=== PATIENT | female | born 1940 | race Caucasian/White ===

== ENCOUNTER 2017-10-18 07:10 | Inpatient (IN) ==
--- NOTE | 2017-10-18 07:14 | Emergency Department Note ---
Disposition Clinical Impression: COPD exacerbation, Hypoxia CHF exacerbation Qualifiers: Heart failure type: unspecified Qualified Code(s): I50.9 - Heart failure, unspecified Pneumonia Qualifiers: Pneumonia type: due to unspecified organism Laterality: bilateral Lung location : unspecified part of lung Qualified Code(s): J18.9 - Pneumonia, unspecified organism Disposition: Admitted As Inpatient Condition: Fair Referrals: Mook Vyas MD [Primary Care Provider] - Forms: ED Satisfaction Letter Time of Disposition: 08:41 SOB HPI - General Chief Complaint: ED Shortness of Breath/Dyspnea Stated Complaint: LAKESHIA Time Seen by Provider: 10/18/17 07:14 Source: patient Mode of arrival: wheelchair Limitations: no limitations Nursing Notes Reviewed: Yes Vital Signs Reviewed: Yes - History of Present Illness Patient is a 76 showed female with past medical history of COPD, CHF. She presents today due to shortness of breath. She says that these symptoms started yesterday after working outside. Shortness of breath worsened into this morning. She has conversational dyspnea. She states that she usually only wears CPAP and oxygen 2 L at night. She does not require any oxygen throughout the day. She is currently on Symbicort inhaler daily. Not on any current antibiotics or prednisone. Denies any productive cough, chest pain, nausea, vomiting, fevers, diarrhea, abdominal pain. She has never required BiPAP in the past. She reports that she has never been to the hospital for COPD exacerbation. She does have Lasix to take at home as needed but states that she has not taken at over the past week, has not noticed any weight gain or increased swelling of lower extremities. - Related Data Home Medications Medication Instructions Recorded Confirmed Advair 100-50 Diskus 01/28/17 Albuterol Sulfate 01/28/17 Calcium 600 + Vit D Tablet 01/28/17 Child Multivitamins 01/28/17 Coreg 01/28/17 Fish Oil 01/28/17 Flonase 01/28/17 Lasix 01/28/17 Lomotil 2.5 mg/0.025 mg 01/28/17 Losartan Potassium 01/28/17 Spiriva 01/28/17 Spironolactone 01/28/17 01/28/17 Vitamin D3 01/28/17 Previous Rx's Medication Instructions Recorded cephALEXin [Keflex] 500 mg PO QID #28 capsule 05/02/17 Allergies Allergy/AdvReac Type Severity Reaction Status Date / Time balsalazide [From Colazal] AdvReac Fever Verified 05/02/17 14:24 Penicillins AdvReac Hives Verified 05/02/17 14:24 Sulfa (Sulfonamide AdvReac Fever Verified 05/02/17 14:24 Antibiotics) All systems ED: reviewed and negative except as stated. Constitutional: Denies: fever Cardiovascular: Denies: chest pain, palpitations Respiratory: Reports: dyspnea. Denies: cough, sputum production Gastrointestinal: Denies: abdominal pain, nausea, vomiting, diarrhea Integumentary: Denies: rash Neurological: Denies: headache, weakness, numbness, paresthesias Past Medical History - Past Medical History Attestation: Yes The following information was validated with the patient. Source: patient Medical history: Reports: non-contributory Surgical history: Reports: breast surgery, cancer surgery, cataract, orthopedic , other, other Psychiatric history: Reports: no psych history - Social History Smoking Status: Never smoker Smokeless Tobacco Status: No Alcohol use: Reports: none Drug use: Reports: none Physical Exam - General Limitations: no limitations General appearance: alert - Head Head exam: atraumatic, normocephalic, normal inspection - Eye Eye exam: Present: normal appearance, PERRL, EOMI - ENT ENT exam: normal exam, normal oropharynx, mucous membranes moist - Neck Neck exam: Present: normal inspection, full ROM, trachea midline - Chest Chest inspection: Present: normal inspection, symmetric chest wall rise - Respiratory Respiratory exam: Present: other (Mild rhonchi bilaterally lower lobes. No overt wheezes or crackles heard. Patient is using accessory muscles, moderate respiratory distress. Conversationally dyspneic) - Cardiovascular Cardiovascular exam: Present: normal rhythm, tachycardia, normal heart sounds - Abdominal Exam Abdominal exam: Present: soft, Non-Tender. Absent: tenderness, distention, guarding, rebound, rigidity - Extremities Exam Extremities exam: Present: normal inspection, full ROM. Absent: tenderness, pedal edema - Neurological Exam Neurological exam: Present: alert, oriented X3 - Psychiatric Psychiatric exam: Present: normal affect, normal mood - Skin Skin exam: Present: warm, dry, intact, normal color Course Course Narrative: Patient was hypoxic and tachycardic on presentation. She is around 89%, placed on 3 L nasal cannula oxygen and was satting 91-92%. She did have her rhonchi on lung exam but no overt wheezes or crackles. Currently concern for pneumonia versus COPD exacerbation versus CHF exacerbation. We will perform an EKG, chest x-ray, troponin, basic blood work, lactic acid and cultures. We will give the patient DuoNeb 3, Solu-Medrol, will try BiPAP due to work of breathing. 08:28 chest x-ray shows diffuse multifocal airspace opacities and pulmonary edema, likely pneumonia superimposed on diffuse pulmonary edema. EKG shows sinus tachycardia with no acute ST changes. Troponin was elevated 0.04, likely secondary to pneumonia, CHF/COPD exacerbation. Levaquin started. Blood cultures drawn. Lactic acid within normal limits. BNP elevated consistent with CHF. Patient was reassessed. She is improving on BiPAP. ABG showed respiratory acidosis with a CO2 of 52. We will keep patient on BiPAP to help with pulmonary edema. We will not start sepsis fluids at this time due to diffuse pulmonary edema. Limited to the hospitalist for further care. Chest X-Ray 10/18/17 07:20 IMPRESSION: 1. Diffuse multifocal airspace opacity throughout both lungs likely reflects a combination of asymmetric pulmonary edema and superimposed pneumonia. 2. Chronic postoperative changes within the right hemithorax status post partial right pneumonectomy, with chronic volume loss, pleural thickening, pleural calcifications noted. There is a chronic small right pleural effusion. D/ / Guerrero Elliott MD / Guerrero Elliott MD Interpreting Provider: Guerrero Elliott MD Vital Signs Temperature 97.5 F L 10/18/17 07:11 Pulse Rate 136 10/18/17 07:11 Respiratory Rate 28 10/18/17 07:11 Blood Pressure 143/87 10/18/17 07:11 O2 Sat by Pulse Oximetry 89 10/18/17 07:11 Temperature 97.5 F L 10/18/17 07:38 Pulse Rate 119 10/18/17 08:27 Respiratory Rate 30 10/18/17 08:27 Blood Pressure 105/59 10/18/17 08:27 O2 Sat by Pulse Oximetry 98 10/18/17 08:27 Oxygen Delivery Oxygen Delivery Bipap Shortness of Breath/Dyspnea - MDM Narrative Medical decision making narrative: Patient was hypoxic and tachycardic on presentation. She is around 89%, placed on 3 L nasal cannula oxygen and was satting 91-92%. She did have her rhonchi on lung exam but no overt wheezes or crackles. Currently concern for pneumonia versus COPD exacerbation versus CHF exacerbation. We will perform an EKG, chest x-ray, troponin, basic blood work, lactic acid and cultures. We will give the patient DuoNeb 3, Solu-Medrol, will try BiPAP due to work of breathing. 08:28 chest x-ray shows diffuse multifocal airspace opacities and pulmonary edema, likely pneumonia superimposed on diffuse pulmonary edema. EKG shows sinus tachycardia with no acute ST changes. Troponin was elevated 0.04, likely secondary to pneumonia, CHF/COPD exacerbation. Levaquin started. Blood cultures drawn. Lactic acid within normal limits. BNP elevated consistent with CHF. Patient was reassessed. She is improving on BiPAP. ABG showed respiratory acidosis with a CO2 of 52. We will keep patient on BiPAP to help with pulmonary edema. We will not start sepsis fluids at this time due to diffuse pulmonary edema. Limited to the hospitalist for further care. - Medical Records Medical records reviewed: Yes I reviewed the patient's medical records. - Lab Data Lab results reviewed: Yes I reviewed the patient's lab results. Result diagrams: 10/18/17 07:47 10/18/17 07:46 Lab Results 10/18/17 10/18/17 10/18/17 Range/Units 07:46 07:47 07:47 WBC 14.2 H (4.3-11.1) K/mcL RBC 3.82 (3.82-4.97) M/mcL Hgb 12.2 (11.5-15.4) g/dL Hct 36.6 (35.3-44.9) % MCV 95.8 (83.0-100.0) fL MCH 31.9 (28.0-33.3) pg MCHC 33.3 (31.6-35.5) g/dL RDW 13.8 (11.5-14.5) % Plt Count 254 (140-400) K/mcL MPV 9.6 (9.4-12.4) fL Immature Gran % 0.5 (0-4) % Seg Neutrophils % 72.2 % Lymphocytes % 16.5 % Monocytes % 8.9 % Eosinophils % 1.5 % Basophils % 0.4 % Neutrophils # 10.3 H (1.6-8.9) K/mcL Lymphocytes # 2.4 (0.6-4.6) K/mcL Monocytes # 1.3 (0.0-1.3) K/mcL Eosinophils # 0.2 (0.0-0.6) K/mcL Basophils # 0.1 (0.0-0.2) K/mcL VBG pH (7.32-7.42) pH Units VBG pCO2 (41-51) mmHg VBG pO2 (25-50) mmHg VBG HCO3 (21-27) mEq/L Sodium 140 (136-145) mEq/L Potassium 4.0 (3.5-5.1) mEq/L Chloride 107 (98-107) mEq/L Carbon Dioxide 25 (23-29) mEq/L BUN 18 (8-23) mg/dL Creatinine 1.07 (0.60-1.20) mg/dL Est GFR ( Amer) > 60 (> 60) Est GFR (Non-Af Amer) 50 L (> 60) BUN/Creatinine Ratio 17 (6-26) Glucose 180 H (70-105) mg/dL Calculated Osmolality 296 (280-300) Lactic Acid 1.3 (0.5-2.2) mmol/L Calcium 9.8 (8.6-10.3) mg/dL Troponin I 0.04 H* (< 0.04) ng/mL B-Natriuretic Peptide (Less than 100) pg/mL 10/18/17 10/18/17 Range/Units 07:47 07:58 WBC (4.3-11.1) K/mcL RBC (3.82-4.97) M/mcL Hgb (11.5-15.4) g/dL Hct (35.3-44.9) % MCV (83.0-100.0) fL MCH (28.0-33.3) pg MCHC (31.6-35.5) g/dL RDW (11.5-14.5) % Plt Count (140-400) K/mcL MPV (9.4-12.4) fL Immature Gran % (0-4) % Seg Neutrophils % % Lymphocytes % % Monocytes % % Eosinophils % % Basophils % % Neutrophils # (1.6-8.9) K/mcL Lymphocytes # (0.6-4.6) K/mcL Monocytes # (0.0-1.3) K/mcL Eosinophils # (0.0-0.6) K/mcL Basophils # (0.0-0.2) K/mcL VBG pH 7.31 L (7.32-7.42) pH Units VBG pCO2 54 H (41-51) mmHg VBG pO2 42 (25-50) mmHg VBG HCO3 27 (21-27) mEq/L Sodium (136-145) mEq/L Potassium (3.5-5.1) mEq/L Chloride (98-107) mEq/L Carbon Dioxide (23-29) mEq/L BUN (8-23) mg/dL Creatinine (0.60-1.20) mg/dL Est GFR ( Amer) (> 60) Est GFR (Non-Af Amer) (> 60) BUN/Creatinine Ratio (6-26) Glucose (70-105) mg/dL Calculated Osmolality (280-300) Lactic Acid (0.5-2.2) mmol/L Calcium (8.6-10.3) mg/dL Troponin I (< 0.04) ng/mL B-Natriuretic Peptide 758 H (Less than 100) pg/mL - Radiology Data Radiology results reviewed: Yes I reviewed the patient's radiology results. Chest X-Ray 10/18/17 07:20 IMPRESSION: 1. Diffuse multifocal airspace opacity throughout both lungs likely reflects a combination of asymmetric pulmonary edema and superimposed pneumonia. 2. Chronic postoperative changes within the right hemithorax status post partial right pneumonectomy, with chronic volume loss, pleural thickening, pleural calcifications noted. There is a chronic small right pleural effusion. D/ / Guerrero Elliott MD / Guerrero Elliott MD Interpreting Provider: Guerrero Elliott MD - EKG Data EKG attestation: Yes I reviewed and interpreted this EKG. EKG results narrative: 10/18/2017 at 07:47. Sinus tachycardia. Rate 123. IN 148. QRS 114. QTC 480. Left axis deviation. No acute ST elevation or depression. S.B.A.R. - S.B.A.R. Situation: Demographics, MOA Background: Presenting Complaint, Relevant PMH, Meds, & Allergies Assessment: Vital Signs, Course and respsone to treatment, Exam Concerns, Patient/Family Expectation, Pertinant Lab Results Recommendation: Barrier(s) to disposition, Recommendation based on pending studies, treatments, or consults [facility] Report Given to: Dr. Kenzie Newell Repor Time: 08:41
[2017-10-18] MEDS ORDERED: methylPREDNISolone 125 MG/2 ML VIAL IVP ONE (07:21)
[2017-10-18] MEDS ORDERED: Ipratropium/Albuterol Neb 3 ML IH ONE (07:21)
[2017-10-18 08:01] LABS: VBG HCO3 27 mEq/L (21-27); VBG PCO2 54 mmHg (41-51); VBG PH 7.31 pH Units (7.32-7.42); VBG PO2 42 mmHg (25-50)
[2017-10-18] MEDS ORDERED: Levofloxacin 750 MG/150 ML 750 MG/150 ML BAG IVPB ONE (08:11)
[2017-10-18 08:20] LABS: BUN/Creatinine Ratio 17 (6-26); Blood Urea Nitrogen 18 mg/dL (8-23); Calcium 9.8 mg/dL (8.6-10.3); Carbon Dioxide 25 mEq/L (23-29); Chloride 107 mEq/L (98-107); Glucose 180 mg/dL (70-105); Osmolality,Calculated 296 (280-300); Sodium 140 mEq/L (136-145); eGFR For African Americans > 60 (> 60); eGFR For Non-African Americans 50 (> 60)
[2017-10-18 08:22] LABS: Troponin I 0.04 ng/mL (< 0.04)
[2017-10-18 08:28] LABS: Basophils # 0.1 K/mcL (0.0-0.2); Basophils % 0.4 %; Eosinophils # 0.2 K/mcL (0.0-0.6); Eosinophils % 1.5 %; Hematocrit 36.6 % (35.3-44.9); Hemoglobin 12.2 g/dL (11.5-15.4); Immature Granulocytes % 0.5 % (0-4); Lymphocytes # 2.4 K/mcL (0.6-4.6); Lymphocytes % 16.5 %; Mean Corpuscular HGB Conc 33.3 g/dL (31.6-35.5); Mean Corpuscular Hemoglobin 31.9 pg (28.0-33.3); Mean Corpuscular Volume 95.8 fL (83.0-100.0); Mean Platelet Volume 9.6 fL (9.4-12.4); Monocytes # 1.3 K/mcL (0.0-1.3); Monocytes % 8.9 %; Neutrophils # 10.3 K/mcL (1.6-8.9); Platelet Count 254 K/mcL (140-400); Red Blood Count 3.82 M/mcL (3.82-4.97); Red Cell Distribution Width 13.8 % (11.5-14.5); Segmented Neutrophils % 72.2 %
--- NOTE | 2017-10-18 09:02 | Internal Med History&Physical ---
Date of Encounter: 10/18/17 Time of Encounter: 09:01 Internal Medicine - H&P: HPI Chief complaint: SOB Admitted From: Home Plans for Post Hospital Care: Home History of present illness: Ms. Jc is a 76 year old female who has history of CHF pulmonary fibrosis on 2 L at night with CPAP, history of breast cancer bilateral mastectomy in 1999, CK D stages 3, presenting emergency room for worsening shortness of breath for 2 days, she has chronic baseline shortness of breath, she started to have more shortness of breath yesterday, progressively gotten worse overnight and this morning she felt she could not breathe. Patient denies fever or chills denies productive cough no chest pain. She has a history of pulmonary fibrosis follow- up with [facility], she is currently not on any steroids or treatment. On 2 L nasal cannula at home at night. When she arrived the emergency room, she was very dyspneic, hypoxic sat 89% on RA, she was placed on BIPAP. She has bilateral diffuse wheezing, WBC 14.2 troponin 0.04 BNP 758. Chest x-ray shows bilateral pneumonia. Patient denies history of recent admission but she does have history of bronchiectasis and the pulmonary fibrosis. will admit for pneumoina and pulmonary fibrosis exacerbation, she is alleregic to Penicllin, but tolerated keflex. will add cefepime to cover pseudomonos. I discussed the CODE STATUS was patient and her . 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 If patient changes mind, she will let us know. Past Med Surg Social Fam HX - Past Medical History Medical history: non-contributory Psychiatric history: no psych history - Past Surgical History Surgical History: breast surgery, cancer surgery, cataract, orthopedic, other, other - Social History Smoking Status: Never smoker Smokeless Tobacco Status: No Alcohol use: none Drug use: none Internal Medicine - H&P: Meds Advair 100-50 Diskus 01/28/17 [History] Albuterol Sulfate 01/28/17 [History] Calcium 600 + Vit D Tablet 01/28/17 [History] Child Multivitamins 01/28/17 [History] Coreg 01/28/17 [History] Fish Oil 01/28/17 [History] Flonase 01/28/17 [History] Lasix 01/28/17 [History] Lomotil 2.5 mg/0.025 mg 01/28/17 [History] Losartan Potassium 01/28/17 [History] Spiriva 01/28/17 [History] Spironolactone 01/28/17 [History] Vitamin D3 01/28/17 [History] cephALEXin [Keflex] 500 mg PO QID #28 capsule 05/02/17 [Rx] 3 Allergy/AdvReac Type Severity Reaction Status Date / Time balsalazide [From Colazal] AdvReac Fever Verified 05/02/17 14:24 Penicillins AdvReac Hives Verified 05/02/17 14:24 Sulfa (Sulfonamide AdvReac Fever Verified 05/02/17 14:24 Antibiotics) All Systems PM: A 10-system review of systems was performed and is negative for pertinent findings except as documented above in the HPI. - Constitutional Vitals: Temp Pulse Resp BP Pulse Ox 97.5 F L 119 30 105/59 98 10/18/17 07:38 10/18/17 08:27 10/18/17 08:27 10/18/17 08:27 10/18/17 08:27 General appearance: Present: mild distress, A&O X 3, pleasant, answers questions appropriately Exam: CONSTITUTIONAL: Patient appears as an age appropriate female well developed, in mild acute distress on BIPAP. EYES Clear sclerae, bilateral pupils are equal, reactive to light and accommodation. Extraocular movements are intact RESPIRATORY: No accessory muscle use, bilateral clear to auscultation, b/l scant wheezing and crackles/rales. CARDIOVASCULAR: Regular heart rate, normal S1 and S2, no murmurs GASTROINTESTINAL: bowel sounds present, soft, no tenderness. No hepatosplenomegaly. No bilateral CVA tenderness MUSCULOSKELETAL: Joints in normal range of motion, no clubbing, no edema, no cyanosis. Bilateral peripheral pulses 2+ LYMPHATIC no lymphadenopathy in neck, groin and axilla bilaterally, no thyromegaly. NEUROLOGIC: CN II to XII are grossly intact, no focal neurological deficit. Deep tendon reflexes 2+ bilaterally. Normal light touch sensation to upper and lower extremity PSYCHIATRIC: Oriented x3, with good insight, mood is euthymic. No hallucinations or delusions. SKIN: Skin warm and dry, no rashes, no open wound. Internal Med - H&P Results - Labs CBC & Chem 7: 10/18/17 07:47 10/18/17 07:46 - Assessment and plan (1) Acute and chronic respiratory failure with hypoxia Current Visit: Yes Status: Acute Assessment and plan: Patient was on 2 L nasal cannula at night currently requires BiPAP FiO2 40%. Her respiratory rate is 30% per min From pneumonia and the pulmonary fibrosis exacerbation. We will continue BiPAP I discussed the CODE STATUS with patient including intubation. The patient does not want intubation and chest compression at this point. I informed the patient that she can change her mind at any time and let us know. will consult pulmonary (2) Pneumonia Current Visit: Yes Status: Acute Assessment and plan: Patient lives at home no recent admissions. But she has history of bronchiectasis and the pulmonary fibrosis I will cover pseudomonas, add cefepime to levaquin check leginella, strep antigen Qualifiers: Pneumonia type: due to other aerobic Gram-negative bacteria Laterality: bilateral Lung location: unspecified part of lung Qualified Code(s): J15.6 - Pneumonia due to other Gram-negative bacteria (3) Pulmonary fibrosis Current Visit: Yes Status: Acute Assessment and plan: Patient has history of pulmonary fibrosis, follow-up at [facility]. Currently not on treatment Patient has bilateral wheezing, possible pulmonary fibrosis exacerbation. We will add the steroids scheduled her nebulizer (4) Systolic CHF, acute on chronic Current Visit: Yes Status: Acute Assessment and plan: Patient had a history of systolic CHF from chemotherapy back to 1999, patient reported that her EF was 40%, she has been on Lasix, but she stopped a few weeks ago. We will give 1 dose of IV Lasix today, BNP was 750 follow up with a.m. (5) Elevated troponin Current Visit: Yes Status: Acute Assessment and plan: Elevated troponin denies chest pain, EKG showed a sinus tachycardia without ST elevation or depression. Will follow-up troponin 3 Likely demand ischemia from pneumonia and respiratory failure (6) Hx of breast cancer Current Visit: Yes Status: Acute Assessment and plan: In 1999, patient had a bilateral mastectomy s/p chemotherapy (7) Hx of bronchiectasis Current Visit: Yes Status: Chronic Assessment and plan: Patient had a history of bronchiectasis when he she was teenager, stated post right lower lobectomy - Time Spent With Patient Total time spent is greater than 50% in coordination of care (as documented) at patient's floor/unit and/or counseling patient: Greater than 35 minutes
--- NOTE | 2017-10-18 09:23 | Emergency Department Note ---
Disposition Clinical Impression: COPD exacerbation, Hypoxia CHF exacerbation Qualifiers: Heart failure type: unspecified Qualified Code(s): I50.9 - Heart failure, unspecified Pneumonia Qualifiers: Pneumonia type: due to unspecified organism Laterality: bilateral Lung location : unspecified part of lung Qualified Code(s): J18.9 - Pneumonia, unspecified organism Disposition: Admitted As Inpatient Condition: Fair Time of Disposition: 08:27 SOB HPI - General Chief Complaint: ED Shortness of Breath/Dyspnea Stated Complaint: LAKESHIA Time Seen by Provider: 10/18/17 07:14 Source: patient Mode of arrival: wheelchair Limitations: no limitations Nursing Notes Reviewed: Yes Vital Signs Reviewed: Yes - Related Data Home Medications Medication Instructions Recorded Confirmed Albuterol Sulfate [Proair Hfa] 2 puff IH Q4H PRN 10/18/17 10/18/17 Calcium Carb, Citrate/Vit D3 1 tab PO DAILY 10/18/17 10/18/17 [Calcium + D3 ER Tablet] Carvedilol [Coreg] 3.125 mg PO BID 10/18/17 10/18/17 Cholecalciferol (Vitamin D3) 4,000 unit PO DAILY 10/18/17 10/18/17 [Vitamin D3] Fish Oil/Dha/Epa [Fish Oil 1,200 1 cap PO BID 10/18/17 10/18/17 mg Fish Oil] Fluticasone/Salmeterol [Advair 1 puff IH BID 10/18/17 10/18/17 500-50 Diskus] Furosemide [Lasix] 20 mg PO DAILY PRN 10/18/17 10/18/17 Losartan Potassium [Cozaar] 50 mg PO DAILY 10/18/17 10/18/17 Losartan [Cozaar] 25 mg PO DAILY 10/18/17 10/18/17 Magnesium Oxide [Mag-Ox] 400 mg PO DAILY 10/18/17 10/18/17 Multivitamin [One Daily 1 tab PO DAILY 10/18/17 10/18/17 Multivitamin] Spironolactone [Aldactone] 25 mg PO Q48H 10/18/17 10/18/17 Tiotropium [Spiriva] 18 mcg IH DAILY 10/18/17 10/18/17 Vitamin E Acid Succinate [Vitamin 200 unit PO DAILY 10/18/17 10/18/17 E] Allergies Allergy/AdvReac Type Severity Reaction Status Date / Time balsalazide [From Colazal] AdvReac Fever Verified 05/02/17 14:24 Penicillins AdvReac Hives Verified 05/02/17 14:24 Sulfa (Sulfonamide AdvReac Fever Verified 05/02/17 14:24 Antibiotics) Constitutional: Denies: fever Cardiovascular: Denies: chest pain, palpitations Respiratory: Reports: dyspnea. Denies: cough, sputum production Gastrointestinal: Denies: abdominal pain, nausea, vomiting, diarrhea Integumentary: Denies: rash Neurological: Denies: headache, weakness, numbness, paresthesias Past Medical History - Past Medical History Medical history: Reports: non-contributory Surgical history: Reports: breast surgery, cancer surgery, cataract, orthopedic , other, other Psychiatric history: Reports: no psych history - Social History Smoking Status: Never smoker Smokeless Tobacco Status: No Alcohol use: Reports: none Drug use: Reports: none Physical Exam - General Limitations: no limitations General appearance: alert Course Vital Signs Temperature 97.5 F L 10/18/17 07:11 Pulse Rate 136 10/18/17 07:11 Respiratory Rate 28 10/18/17 07:11 Blood Pressure 143/87 10/18/17 07:11 O2 Sat by Pulse Oximetry 89 10/18/17 07:11 Temperature 97.5 F L 10/18/17 07:38 Pulse Rate 119 10/18/17 08:27 Respiratory Rate 30 10/18/17 08:27 Blood Pressure 105/59 10/18/17 08:27 O2 Sat by Pulse Oximetry 98 10/18/17 08:27 Oxygen Delivery Oxygen Delivery Bipap Shortness of Breath/Dyspnea - Lab Data Result diagrams: 10/18/17 07:47 10/18/17 07:46 Lab Results 10/18/17 10/18/17 10/18/17 Range/Units 07:46 07:47 07:47 WBC 14.2 H (4.3-11.1) K/mcL RBC 3.82 (3.82-4.97) M/mcL Hgb 12.2 (11.5-15.4) g/dL Hct 36.6 (35.3-44.9) % MCV 95.8 (83.0-100.0) fL MCH 31.9 (28.0-33.3) pg MCHC 33.3 (31.6-35.5) g/dL RDW 13.8 (11.5-14.5) % Plt Count 254 (140-400) K/mcL MPV 9.6 (9.4-12.4) fL Immature Gran % 0.5 (0-4) % Seg Neutrophils % 72.2 % Lymphocytes % 16.5 % Monocytes % 8.9 % Eosinophils % 1.5 % Basophils % 0.4 % Neutrophils # 10.3 H (1.6-8.9) K/mcL Lymphocytes # 2.4 (0.6-4.6) K/mcL Monocytes # 1.3 (0.0-1.3) K/mcL Eosinophils # 0.2 (0.0-0.6) K/mcL Basophils # 0.1 (0.0-0.2) K/mcL VBG pH (7.32-7.42) pH Units VBG pCO2 (41-51) mmHg VBG pO2 (25-50) mmHg VBG HCO3 (21-27) mEq/L Sodium 140 (136-145) mEq/L Potassium 4.0 (3.5-5.1) mEq/L Chloride 107 (98-107) mEq/L Carbon Dioxide 25 (23-29) mEq/L BUN 18 (8-23) mg/dL Creatinine 1.07 (0.60-1.20) mg/dL Est GFR ( Amer) > 60 (> 60) Est GFR (Non-Af Amer) 50 L (> 60) BUN/Creatinine Ratio 17 (6-26) Glucose 180 H (70-105) mg/dL Calculated Osmolality 296 (280-300) Lactic Acid 1.3 (0.5-2.2) mmol/L Calcium 9.8 (8.6-10.3) mg/dL Troponin I 0.04 H* (< 0.04) ng/mL B-Natriuretic Peptide (Less than 100) pg/mL 10/18/17 10/18/17 Range/Units 07:47 07:58 WBC (4.3-11.1) K/mcL RBC (3.82-4.97) M/mcL Hgb (11.5-15.4) g/dL Hct (35.3-44.9) % MCV (83.0-100.0) fL MCH (28.0-33.3) pg MCHC (31.6-35.5) g/dL RDW (11.5-14.5) % Plt Count (140-400) K/mcL MPV (9.4-12.4) fL Immature Gran % (0-4) % Seg Neutrophils % % Lymphocytes % % Monocytes % % Eosinophils % % Basophils % % Neutrophils # (1.6-8.9) K/mcL Lymphocytes # (0.6-4.6) K/mcL Monocytes # (0.0-1.3) K/mcL Eosinophils # (0.0-0.6) K/mcL Basophils # (0.0-0.2) K/mcL VBG pH 7.31 L (7.32-7.42) pH Units VBG pCO2 54 H (41-51) mmHg VBG pO2 42 (25-50) mmHg VBG HCO3 27 (21-27) mEq/L Sodium (136-145) mEq/L Potassium (3.5-5.1) mEq/L Chloride (98-107) mEq/L Carbon Dioxide (23-29) mEq/L BUN (8-23) mg/dL Creatinine (0.60-1.20) mg/dL Est GFR ( Amer) (> 60) Est GFR (Non-Af Amer) (> 60) BUN/Creatinine Ratio (6-26) Glucose (70-105) mg/dL Calculated Osmolality (280-300) Lactic Acid (0.5-2.2) mmol/L Calcium (8.6-10.3) mg/dL Troponin I (< 0.04) ng/mL B-Natriuretic Peptide 758 H (Less than 100) pg/mL Attestation Statement - Attestation Attestation: I, Zay Arreola, examined this patient and my medical decision-making was reviewed with the [employer] STUDDER/PA/Advanced Practice Nurse/Resident Physician. I agree with the documented findings, disposition and treatment plan as described except to the extent set forth below. 76-year-old female presents emergency Department with increased shortness of breath. Patient satting 91% on 3-4 L of nasal cannula which she states is abnormal for her. On initial evaluation she had increased work of breathing using accessory muscles. Patient states symptoms started and progressively worsened over the past 24-48 hours. Patient has a history of COPD and takes inhalers daily. She also has a history of congestive heart failure, denies a change in her diet. She takes Lasix when necessary however she has not taken any recently. Patient denies recent fever. Chest x-ray shows significant pulmonary edema with possible multifocal pneumonia. Patient started on antibiotics in the emergency department. She has mildly tachycardic and thus we did not give Lasix. We also did not give 20 mL per KG bolus of fluids secondary to her pulmonary edema. Patient work of breathing improved significantly with BiPAP. Patient will be admitted to the hospital for further care and evaluation of pulmonary edema versus multifocal pneumonia.
[2017-10-18] MEDS ORDERED: Furosemide 40 MG/4 ML VIAL IVP ONE (09:39)
[2017-10-18] MEDS ORDERED: Naloxone 0.4 MG/ML INJ IVP PRN (09:42)
[2017-10-18] MEDS ORDERED: Albuterol 2.5 MG/3 ML NEBULIZER IH PRN (09:47)
--- NOTE | 2017-10-18 10:01 | Pulmonology Consult Note ---
Date of Encounter: 10/18/17 Time of Encounter: 09:40 Assessment and Plan (1) COPD exacerbation Current Visit: Yes Status: Acute Patient has h/o mixed obstructive and restrictive ventilatory impairment the PFT was done [facility] . with long standing history significant for recurrent bronchitis and asthma suspect she will have COPD changes . To continue bronchodilators and steroids . This presentation more likely to have acute on chronic systolic heart failure component.. (2) Acute and chronic respiratory failure with hypoxia Current Visit: Yes Status: Acute Patient doesnt use O2 on exertion most likely she needs only uses nocturnal O2 supplementation . To Keep SPO2 around 90% (3) Systolic CHF, acute on chronic Current Visit: Yes Status: Acute Patient presenting with subacute shortness of breadth with background of EF of 40% secondary to non -ischemic cardiomyopathy with increased BNP and CXR imaging shows bilateral alveolar process will continue diuresis as tolerated . (4) Pneumonia Current Visit: Yes Status: Acute Patient has bilateral alveolar process which can be pneumonia vs pulmonary edema agree with broad spectrum antibiotics coverage now . Qualifiers: Pneumonia type: due to other aerobic Gram-negative bacteria Laterality: bilateral Lung location: unspecified part of lung Qualified Code(s): J15.6 - Pneumonia due to other Gram-negative bacteria (5) Pulmonary fibrosis Current Visit: Yes Status: Acute Patient has long standing pulmonary fibrosis currently followed by [facility] pul[facility]ology highly doubt this is Pulmonary fibrosis exacerbation will get CT chest if patient is not improving . History of Present Illness Consult date: 10/18/17 Requesting physician: Karen Espino Chief complaint: Shortness of Breadth History of present illness: 76 year old female with past medical history significant for Systolic heart failure according to patient the Last EF was 40% 2 years before it all started after chemotherapy for breast cancer with adriamycin initially her EF was 15% which improved to 40% , Patient follows up with [facility] pulmnology managed for pulmonary fibrosis , SOBEIDA on CPAP with 2 LPM of O2 at night but doesnt use O2 during exertion during the day. According to patient the PFT showed mixed obstructive and restrictive ventilatory impairment comes with 2 days of shortness of breadth had some cough but not much sputum production CXR showed bilateral alveolar opacities concerning multifocal pneumonia vs Pulmonary edema. Pulmonary was consulted for management of acute hypoxic respiratory failure. Past Med Surg Social Fam HX - Past Medical History Medical history: non-contributory Psychiatric history: no psych history - Past Surgical History Surgical History: breast surgery, cancer surgery, cataract, orthopedic, other, other - Social History Smoking Status: Never smoker Smokeless Tobacco Status: No Alcohol use: none Drug use: none Medications and Allergies Albuterol Sulfate [Proair Hfa] 2 puff IH Q4H PRN 10/18/17 [History] Calcium Carb, Citrate/Vit D3 [Calcium + D3 ER Tablet] 1 tab PO DAILY 10/18/17 [ History] Carvedilol [Coreg] 3.125 mg PO BID 10/18/17 [History] Cholecalciferol (Vitamin D3) [Vitamin D3] 4,000 unit PO DAILY 10/18/17 [History] Fish Oil/Dha/Epa [Fish Oil 1,200 mg Fish Oil] 1 cap PO BID 10/18/17 [History] Fluticasone/Salmeterol [Advair 500-50 Diskus] 1 puff IH BID 10/18/17 [History] Furosemide [Lasix] 20 mg PO DAILY PRN 10/18/17 [History] Losartan Potassium [Cozaar] 50 mg PO DAILY 10/18/17 [History] Losartan [Cozaar] 25 mg PO DAILY 10/18/17 [History] Magnesium Oxide [Mag-Ox] 400 mg PO DAILY 10/18/17 [History] Multivitamin [One Daily Multivitamin] 1 tab PO DAILY 10/18/17 [History] Spironolactone [Aldactone] 25 mg PO Q48H 10/18/17 [History] Tiotropium [Spiriva] 18 mcg IH DAILY 10/18/17 [History] Vitamin E Acid Succinate [Vitamin E] 200 unit PO DAILY 10/18/17 [History] 3 Allergy/AdvReac Type Severity Reaction Status Date / Time balsalazide [From Colazal] AdvReac Fever Verified 05/02/17 14:24 Penicillins AdvReac Hives Verified 05/02/17 14:24 Sulfa (Sulfonamide AdvReac Fever Verified 05/02/17 14:24 Antibiotics) All Systems: The remainder of the systems were reviewed and are negative Physical Examination Vital Signs: Vital Signs, Last 4 Hours Temp Pulse Resp BP Pulse Ox 10/18/17 09:21 98.5 F 120 20 138/65 94 Auscultation: right: diminished breath sounds, bilateral: wheezes (scattered wheezes ) Results - Laboratory Findings CBC and BMP: 10/18/17 07:47 10/18/17 07:46 Abnormal lab findings: Abnormal lab results WBC 14.2 K/mcL (4.3-11.1) H 10/18/17 07:47 Neutrophils # 10.3 K/mcL (1.6-8.9) H 10/18/17 07:47 VBG pH 7.31 pH Units (7.32-7.42) L 10/18/17 07:58 VBG pCO2 54 mmHg (41-51) H 10/18/17 07:58 Est GFR (Non-Af Amer) 50 (> 60) L 10/18/17 07:46 Glucose 180 mg/dL (70-105) H 10/18/17 07:46 Troponin I 0.04 ng/mL (< 0.04) H* 10/18/17 07:46 B-Natriuretic Peptide 758 pg/mL (Less than 100) H 10/18/17 07:47 - Clinical Findings Intake & Output: Intake & Output 10/17/17 10/18/17 10/18/17 23:59 07:59 15:59 Weight 76.5 kg Consult Discharge Plan - Plan Referrals: Mook Vyas MD [Primary Care Provider] -
[2017-10-18] MEDS ORDERED: Budesonide/Formoterol 160/4.5 MDI IH SCH (10:30)
[2017-10-18] MEDS: Ipratropium/Albuterol Neb 3 ML IH SCH ×4 (11:36→23:56)
[2017-10-18] MEDS ORDERED: MethylPREDNISolone 40 MG/ML VIAL IVP SCH (12:00)
[2017-10-18] MEDS: Cefepime HCl 2,000 MG in 0.9 % Sodium Chloride Mini Bag 100 ML IVPB SCH ×2 (13:23→17:03)
[2017-10-18] MEDS: MethylPREDNISolone 40 MG/ML VIAL IVP SCH ×2 (16:16→22:35)
[2017-10-18] MEDS ORDERED: 0.9 % Sodium Chloride 1,000 ML IVC SCH (22:15)
[2017-10-18] MEDS: Budesonide/Formoterol 160/4.5 MDI IH SCH (23:56)
[2017-10-19 02:02] LABS: Hematocrit 32.2 % (35.3-44.9); Hemoglobin 10.7 g/dL (11.5-15.4); Mean Corpuscular HGB Conc 33.2 g/dL (31.6-35.5); Mean Corpuscular Hemoglobin 30.8 pg (28.0-33.3); Mean Corpuscular Volume 92.8 fL (83.0-100.0); Mean Platelet Volume 9.5 fL (9.4-12.4); Platelet Count 204 K/mcL (140-400); Red Blood Count 3.47 M/mcL (3.82-4.97); Red Cell Distribution Width 13.7 % (11.5-14.5)
[2017-10-19 02:21] LABS: Calcium 9.3 mg/dL (8.6-10.3); Magnesium 1.2 mg/dL (1.6-2.6); Potassium 3.6 mEq/L (3.5-5.1)
[2017-10-19] MEDS: Ipratropium/Albuterol Neb 3 ML IH SCH ×6 (03:52→23:38)
[2017-10-19] MEDS: Cefepime HCl 2,000 MG in 0.9 % Sodium Chloride Mini Bag 100 ML IVPB SCH ×2 (05:26→17:24)
--- NOTE | 2017-10-19 07:27 | Pulmonology Progress Note ---
Date of Encounter: 10/19/17 Time of Encounter: 07:20 Assessment and Plan (1) COPD exacerbation Current Visit: Yes Status: Acute Patient has h/o mixed obstructive and restrictive ventilatory pattern , with history recurrent bronchitis in the past will treat as COPD flare up complicated Systolic heart failure . To continue bronchodilaors . (2) Acute and chronic respiratory failure with hypoxia Current Visit: Yes Status: Acute Patient Oxygenation is stable secondary to chronic fibrosis following right lower lobectomy now complicated with systolic heart failure and COPD (3) Systolic CHF, acute on chronic Current Visit: Yes Status: Acute ECHO showed EF of 35% with global LV systolic dysfunction with mild pulmonary HTN . To stop IV fluids to do gentle diuresis as tolerated . Patient to follow up with [facility] for heart failure patient is already established there (4) Pneumonia Current Visit: Yes Status: Acute To continue the current regimen of antibiotics will soon descalate . Qualifiers: Pneumonia type: due to other aerobic Gram-negative bacteria Laterality: bilateral Lung location: unspecified part of lung Qualified Code(s): J15.6 - Pneumonia due to other Gram-negative bacteria (5) Pulmonary fibrosis Current Visit: Yes Status: Acute Patient has chronic fibrosis will evaluate further with CT Chest W/O contrast Subjective Principal diagnosis: CHF exacerbation and possible pneumonia Interval history: Patient is doing well getting better still not back to baseline ,denies any chest pain or tightness , still has on and off shortness of breadth , denies any wheezing has some occasional cough no sputum production . Objective PUL Vital signs: Last Vital Signs Temp 97.8 F 10/19/17 03:46 Pulse 112 10/19/17 03:46 Resp 15 10/19/17 03:52 BP 93/56 10/19/17 03:46 Pulse Ox 95 10/19/17 06:04 Auscultation: bilateral: other (bilateral basilar crackles ) Results - Laboratory Findings CBC and BMP: 10/19/17 01:49 10/19/17 01:49 Abnormal lab findings: Abnormal lab results WBC 13.2 K/mcL (4.3-11.1) H 10/19/17 01:49 RBC 3.47 M/mcL (3.82-4.97) L 10/19/17 01:49 Hgb 10.7 g/dL (11.5-15.4) L D 10/19/17 01:49 Hct 32.2 % (35.3-44.9) L 10/19/17 01:49 Neutrophils # 10.3 K/mcL (1.6-8.9) H 10/18/17 07:47 VBG pH 7.31 pH Units (7.32-7.42) L 10/18/17 07:58 VBG pCO2 54 mmHg (41-51) H 10/18/17 07:58 Carbon Dioxide 22 mEq/L (23-29) L 10/19/17 01:49 BUN 30 mg/dL (8-23) H 10/19/17 01:49 Creatinine 1.29 mg/dL (0.60-1.20) H 10/19/17 01:49 Est GFR ( Amer) 49 (> 60) L 10/19/17 01:49 Est GFR (Non-Af Amer) 40 (> 60) L 10/19/17 01:49 Glucose 252 mg/dL (70-105) H 10/19/17 01:49 Calculated Osmolality 301 (280-300) H 10/19/17 01:49 Lactic Acid 3.2 mmol/L (0.5-2.2) H 10/18/17 22:29 Magnesium 1.2 mg/dL (1.6-2.6) L 10/19/17 01:49 Troponin I 0.04 ng/mL (< 0.04) H* 10/19/17 01:49 B-Natriuretic Peptide 878 pg/mL (Less than 100) H 10/19/17 01:49 - Clinical Findings Intake & Output: Intake & Output 10/18/17 10/18/17 10/19/17 15:59 23:59 07:59 Intake Total 100 / 100 1040 / 1040 Balance 100 / 100 1040 / 1040 Weight 76.5 kg 74.843 kg Consult Discharge Plan - Plan Referrals: Mook Vyas MD [Primary Care Provider] -
[2017-10-19] MEDS: Cholecalciferol (D-3) 1,000 UNIT TABLET PO SCH (08:21)
[2017-10-19] MEDS: MethylPREDNISolone 40 MG/ML VIAL IVP SCH ×3 (08:21→23:24)
[2017-10-19] MEDS: Magnesium Oxide 400 MG TABLET PO SCH (08:21)
[2017-10-19] MEDS: Levofloxacin 750 MG/150 ML 750 MG/150 ML BAG IVPB SCH (08:22)
[2017-10-19] MEDS ORDERED: Tiotropium 18 MCG inhalation IH SCH (09:00)
[2017-10-19] MEDS: Budesonide/Formoterol 160/4.5 MDI IH SCH ×2 (11:13→20:12)
--- NOTE | 2017-10-19 14:03 | Internal Med Progress Note ---
Date of Encounter: 10/19/17 Time of Encounter: 14:01 - Assessment and plan (1) Acute and chronic respiratory failure with hypoxia Current Visit: Yes Status: Acute Assessment and plan: Possibly from Pulm fibrosis flare and pneumonia Cont O2 supplement Continue antbiotics-Cefepime and levaquin, pulm is following FOr CT Chest today Continue steroids and bronchodilators (2) Elevated troponin Current Visit: Yes Status: Acute Assessment and plan: Elevated troponin denies chest pain, EKG showed a sinus tachycardia without ST elevation or depression. Will follow-up troponin 3 Likely demand ischemia from pneumonia and respiratory failure ECHO with EF 35%,known low EF, but new multiple WMA Will consult cardiology Euvolemic at this time, slight bump in Cr from one dose of lasix, continue to monitor (3) Hx of breast cancer Current Visit: Yes Status: Chronic Assessment and plan: In 1999, patient had a bilateral mastectomy s/p chemotherapy (4) Pneumonia Current Visit: Yes Status: Acute Assessment and plan: as in resp failure Follow CT scan report Qualifiers: Pneumonia type: due to other aerobic Gram-negative bacteria Laterality: bilateral Lung location: unspecified part of lung Qualified Code(s): J15.6 - Pneumonia due to other Gram-negative bacteria (5) Pulmonary fibrosis Current Visit: Yes Status: Acute Assessment and plan: as in resp failure (6) Systolic CHF, acute on chronic Current Visit: Yes Status: Acute Assessment and plan: Elevated BNP ECHO with EF 35%,WMA, patient with SOB Elevated cr from 1.0 to 1.29 this a.m, received one dose of laisx IV Will hold lasix for now Cardio eval (7) Hx of bronchiectasis Current Visit: Yes Status: Chronic Assessment and plan: Patient had a history of bronchiectasis when she was teenager, stated post right lower lobectomy - Time Spent With Patient Total time spent is greater than 50% in coordination of care (as documented) at patient's floor/unit and/or counseling patient: - Subjective Interval history: Seen and examined at the bedside with spouse No new complains Slight increase in Cr overnight, received one dose of lasix on admission - Constitutional Vitals: Temp Pulse Resp BP Pulse Ox 98.3 F 106 17 99/57 97 10/19/17 11:08 10/19/17 11:08 10/19/17 11:08 10/19/17 11:08 10/19/17 11:08 General appearance: Present: A&O X 3, pleasant, no acute distress, answers questions appropriately - Head Head exam: Present: atraumatic, normocephalic - Eye Eye exam: Present: PERRL, conjuntiva pink, sclera anicteric Pupils: Present: PERRL - Neck Neck exam general surgery: Present: supple, trachea midline. Absent: lymphadenopathy - Respiratory Additional comments: expiratory rales,no wheezing - Cardiovascular Cardiovascular exam: Present: RRR, +S1, +S2. Absent: diastolic murmur, gallop, rubs, systolic murmur - GI/Abdominal GI/Abdominal exam: Present: normal bowel sounds, soft, no peritoneal signs. Absent: distended, tenderness - Extremities Exam Extremities exam: Present: warm, radial pulses palpable and symmetrical. Absent : calf tenderness, cyanotic, pedal edema - Neurological Exam Neurological exam: Present: alert, CN II-XII intact, oriented X3, no focal deficits. Absent: pronater drift, facial droop, speech deficit - Skin Skin exam: Present: dry, intact Internal Medicine: Result - Labs CBC & Chem 7: 10/19/17 01:49 10/19/17 01:49 Labs: Short CBC 10/19/17 Range/Units 01:49 WBC 13.2 H (4.3-11.1) K/mcL Hgb 10.7 L D (11.5-15.4) g/dL Hct 32.2 L (35.3-44.9) % Plt Count 204 (140-400) K/mcL BMP 10/19/17 01:49 Sodium 138 Potassium 3.6 Chloride 106 Carbon Dioxide 22 L BUN 30 H Creatinine 1.29 H Glucose 252 H Calcium 9.3 Cardiac Enzymes 10/18/17 10/18/17 10/19/17 Range/Units 13:38 19:13 01:49 Troponin I 0.05 H* 0.04 H* 0.04 H* (< 0.04) ng/mL - Impressions Impressions Echocardiogram 10/19/17 09:58 Impressions: LVEF 35%. Normal LV chamber size and wall thickness. Global left ventricular systolic dysfunction. Indeterminate diastolic function. Normal right ventricular structure and function. Mild tricuspid regurgitation. Mild pulmonary hypertension. Estimated RVSP is 44 mmHg. Left Ventricular Wall Motion: Rest Echo Findings The apex, apical inferior, mid inferior, basal inferior, apical anterior, mid anterior, basal anterior, apical septal, mid inferior septal, basal inferior septal, apical lateral, mid anterior lateral, basal anterior lateral, mid anterior septal, mid inferior lateral, basal anterior septal and basal inferior lateral carrion were hypokinetic. Findings: Study Quality * Technically adequate exam. ECG Findings * Sinus tachycardia. Left Ventricle * LVEF 35%. * Normal LV chamber size and wall thickness. * Global left ventricular systolic dysfunction. * Indeterminate diastolic function. Right Ventricle * Normal right ventricular structure and function. Left Atrium * Severely dilated left atrium. Right Atrium * Normal right atrial size. Aortic Valve * Aortic valve not well visualized. * No aortic regurgitation. * No aortic stenosis. Mitral Valve * Normal mitral valve structure and function. * No mitral stenosis. * Trace mitral regurgitation. This was not well evaluated and could be underestiamted. Tricuspid Valve * Normal tricuspid valve structure. * Mild tricuspid regurgitation. * Mild pulmonary hypertension. * Estimated RVSP is 44 mmHg. * Estimated RA pressure is 5 mmHg. Pulmonic Valve * Pulmonic valve not well visualized. Aorta * Normally sized aortic root. Pericardium * The pericardium appears normal. IVC * Normal IVC dimensions and inspiratory collapse. Pulmonary Artery * Normal visualized portions of the main pulmonary artery. Consult Discharge Plan - Plan Referrals: Mook Vyas MD [Primary Care Provider] -
[2017-10-19] MEDS: *HR* Heparin 5,000 UNIT/ML VIAL SQ SCH (17:26)
[2017-10-20] MEDS ORDERED: 0.9 % Sodium Chloride 250 ML IVC ONE (02:36)
[2017-10-20] MEDS ORDERED: *HR* LORazepam 2 MG/ML VIAL IVP ONE (02:37)
[2017-10-20 03:01] LABS: Basophils % 0.1 %
[2017-10-20] MEDS ORDERED: 0.9 % Sodium Chloride 500 ML ONE (03:02)
[2017-10-20 03:03] LABS: Hematocrit 36.8 % (35.3-44.9); Hemoglobin 12.1 g/dL (11.5-15.4); Immature Granulocytes % 0.8 % (0-4); Lymphocytes % 3.9 %; Mean Corpuscular HGB Conc 32.9 g/dL (31.6-35.5); Mean Corpuscular Hemoglobin 30.6 pg (28.0-33.3); Mean Corpuscular Volume 93.2 fL (83.0-100.0); Mean Platelet Volume 9.3 fL (9.4-12.4); Monocytes % 3.9 %; Neutrophils # 23.3 K/mcL (1.6-8.9); Platelet Count 282 K/mcL (140-400); Red Blood Count 3.95 M/mcL (3.82-4.97); Segmented Neutrophils % 91.3 %
[2017-10-20 03:23] LABS: Platelet Estimate Normal (Normal)
[2017-10-20 03:31] LABS: Calcium 9.4 mg/dL (8.6-10.3); Potassium 4.5 mEq/L (3.5-5.1)
[2017-10-20] MEDS: Ipratropium/Albuterol Neb 3 ML IH SCH ×6 (04:01→23:46)
[2017-10-20] MEDS: Cefepime HCl 2,000 MG in 0.9 % Sodium Chloride Mini Bag 100 ML IVPB SCH ×2 (05:58→16:54)
[2017-10-20] MEDS: *HR* Heparin 5,000 UNIT/ML VIAL SQ SCH ×2 (05:59→17:40)
--- NOTE | 2017-10-20 07:05 | Electrocardiograph Report ---
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
[2017-10-20] MEDS: Cholecalciferol (D-3) 1,000 UNIT TABLET PO SCH (08:22)
[2017-10-20] MEDS: Magnesium Oxide 400 MG TABLET PO SCH (08:23)
[2017-10-20] MEDS: MethylPREDNISolone 40 MG/ML VIAL IVP SCH (08:23)
[2017-10-20] MEDS ORDERED: Furosemide 40 MG/4 ML VIAL IVP ONE (09:11)
[2017-10-20] MEDS ORDERED: Furosemide 40 MG/4 ML VIAL ONE (09:13)
[2017-10-20] MEDS: Budesonide/Formoterol 160/4.5 MDI IH SCH ×2 (11:00→19:44)
--- NOTE | 2017-10-20 11:08 | Cardiology Consult Note ---
<Ernestina Paz - Last Filed: 10/20/17 12:06> Date of Encounter: 10/20/17 Time of Encounter: 10:00 Assessment and Plan (1) Pneumonia Current Visit: Yes Status: Acute Per cardiology: -Being treated for pneumonia. -Pulmonary following. -Management per primary and pulmonary services. Qualifiers: Pneumonia type: due to other aerobic Gram-negative bacteria Laterality: bilateral Lung location: unspecified part of lung Qualified Code(s): J15.6 - Pneumonia due to other Gram-negative bacteria (2) Non-ischemic cardiomyopathy Current Visit: Yes Status: Chronic Per cardiology: -Known non-ischemic cardiomyopathy. -Reports LVEF 15% at diagnosis 2001, reports then improved to 40%. -Reports LHC with "no blockages." -Follows with [facility] heart failure clinic. -TTE [facility] with LVEF 35%, global hypokinesis. -Chest xray with pulmonary edema. -BNP 800s. -Denies weight gain, increased edema. Was given Lasix x1 dose, then renal function worsened. -Euvolemic on exam. -ON BB, not on armen/arb due to renal function. -Can consider oral lasix. -Anticipate cardiology sign off once seen and evaluated by Dr. Covarrubias. -Recommend close follow up with [facility] heart failure clinic. (3) Elevated troponin Current Visit: Yes Status: Acute Per cardiology: -Troponins 0.04, 0.05, 0.04, 0.04, 0.05 in the setting of pneumonia. -Denies chest pain. -Reports previous LHC with "no blockages." -ECG with no aucte ischemic changes -TTE with LVEF 35%, reported most recent TTE [facility] with LVEF 40%. -On BB. Not on statin due to intolerance. -Do not suspect NSTEMI, suspect demand ischemia related to above. No cardiac rehab consult warranted. -Consider addition of ASA. Discussion w patient/family: The assessment and plan as outlined above was discussed with the patient who expressed understanding and agreement. All questions were answered. Thank you for involving us in the care of your patient. Please call with any questions. Discussed and reviewed with . History of Present Illness Consult date: 10/19/17 Requesting physician: Doron Hubbard Consult reason: CHF, cardiomyopathy Chief complaint: shortness of breath History of present illness: Ms. Jc is a 76 year old female with a relevant past medical history of non- ischemic cardiomyopathy, breast cancer, pulmonary fibrosis s/p lobectomy, COPD, CKD who presented to [facility] with complaints of worsening shortness of breath. Patient has pulmonary fibrosis and states she wears O2 at home as needed. Patient denies chest pain. Patient denies weight gain or increased edema. Patient reports she follows with [facility] heart failure clinic. Past Med Surg Social Fam HX - Past Medical History Attestation: Yes The following information was validated with the patient. Source: patient, old records reviewed Medical history: cancer, cardiomyopathy, COPD, other (Pulmonary fibrosis. ) Psychiatric history: no psych history - Past Surgical History Surgical History: breast surgery, cancer surgery, cataract, orthopedic, other, other Additional surgical history: lobectomy. breast - Social History Smoking Status: Never smoker Smokeless Tobacco Status: No Alcohol use: none Drug use: none Medications and Allergies Albuterol Sulfate [Proair Hfa] 2 puff IH Q4H PRN 10/18/17 [History] Calcium Carb, Citrate/Vit D3 [Calcium + D3 ER Tablet] 1 tab PO DAILY 10/18/17 [ History] Carvedilol [Coreg] 3.125 mg PO BID 10/18/17 [History] Cholecalciferol (Vitamin D3) [Vitamin D3] 4,000 unit PO DAILY 10/18/17 [History] Fish Oil/Dha/Epa [Fish Oil 1,200 mg Fish Oil] 1 cap PO BID 10/18/17 [History] Fluticasone/Salmeterol [Advair 500-50 Diskus] 1 puff IH BID 10/18/17 [History] Furosemide [Lasix] 20 mg PO DAILY PRN 10/18/17 [History] Losartan Potassium [Cozaar] 50 mg PO DAILY 10/18/17 [History] Losartan [Cozaar] 25 mg PO DAILY 10/18/17 [History] Magnesium Oxide [Mag-Ox] 400 mg PO DAILY 10/18/17 [History] Multivitamin [One Daily Multivitamin] 1 tab PO DAILY 10/18/17 [History] Spironolactone [Aldactone] 25 mg PO Q48H 10/18/17 [History] Tiotropium [Spiriva] 18 mcg IH DAILY 10/18/17 [History] Vitamin E Acid Succinate [Vitamin E] 200 unit PO DAILY 10/18/17 [History] 3 Allergy/AdvReac Type Severity Reaction Status Date / Time balsalazide [From Colazal] AdvReac Fever Verified 05/02/17 14:24 Penicillins AdvReac Hives Verified 05/02/17 14:24 Sulfa (Sulfonamide AdvReac Fever Verified 05/02/17 14:24 Antibiotics) All Systems Review: The remainder of the systems were reviewed and are negative - Cardiovascular Cardiovascular: as per HPI, dyspnea at rest, dyspnea on exertion Physical Examination Vital Signs, Last 4 Hours Temp Pulse Resp BP Pulse Ox 10/20/17 07:32 98.2 F 105 24 107/65 92 10/20/17 07:22 19 98 General: Conversant, No Apparent Distress HEENT: Atraumatic, Normocephaly, Mucus Membranes Moist Neck: No JVD, Normal carotid pulses Cardiac: Reg Rate and Rhythm, Normal S1 and S2, No Murmur Lungs: Other (RLL and RML lung sounds absent. All other lung eubanks with inspiratory wheezes. Currently on Bipap. ) Neuro: Alert and responsive, No focal deficits noted Abdomen: Soft, Non-Tender Skin: No rashes noted on visualized skin Musculoskeletal: No Chest Wall Tenderness Extremities: No Clubbing, No Cyanosis, No Edema, Normal Pulses Results 10/20/17 02:46 10/20/17 02:46 Lab Results Impressions Chest CT 10/19/17 16:13 IMPRESSION: 1. Diminished right lung volume with the fibrocalcific pleural thickening and interstitial fibrosis. 2. Ground-glass pulmonary attenuation in the left perihilar midlung field suggesting interstitial inflammatory process/ edema or alveolitis. 3. Cholelithiasis. D/ / Estuardo Gonzales MD / Estuardo Gonzales MD Interpreting Provider: Estuardo Gonzales MD Chest X-Ray 10/20/17 01:11 IMPRESSION: Stable bilateral airspace disease. D/ / Keith Carson MD / Keith Carson MD Interpreting Provider: Keith Carson MD Active Medications Albuterol Sulfate (Proventil Neb) 2.5 mg IH Q2H PRN; Protocol PRN Reason: Shortness Of Breath/Wheezing Stop: 04/19/18 09:48 Albuterol/Ipratropium (Duoneb) 3 ml IH [id number] [facility] Stop: 04/19/18 12:01 Last Admin: 10/20/17 11:01 Dose: 3 ml Budesonide/Formoterol Fumarate (Symbicort) 2 puff IH BIDR [facility] Stop: 04/19/18 10:31 Last Admin: 10/20/17 11:00 Dose: 2 puff Carvedilol (Coreg) 3.125 mg PO BIDWM TRISTA PRN Reason: Protocol Stop: 04/19/18 17:01 Last Admin: 10/20/17 08:22 Dose: 3.125 mg Heparin Sodium (Porcine) (Heparin) 5,000 unit SQ Q12HCO [facility] Stop: 04/20/18 18:01 Last Admin: 10/20/17 05:59 Dose: 5,000 unit Cefepime HCl 2,000 mg/ Sodium (Chloride) 100 mls @ 200 mls/hr IVPB Q12HR [facility] Stop: 04/19/18 09:40 Last Admin: 10/20/17 05:58 Dose: 200 mls/hr Levofloxacin/Dextrose (Levaquin Premix 750mg/150 Ml) 750 mg in 150 mls @ 100 mls/hr IVPB Q48H [facility] PRN Reason: Protocol Stop: 04/20/18 09:01 Last Admin: 10/19/17 08:22 Dose: 100 mls/hr Linezolid/Dextrose (Zyvox Premix 600mg/300ml) 600 mg in 300 mls @ 150 mls/hr IVPB Q12HR [facility] Stop: 04/21/18 18:01 Magnesium Oxide (Mag-Ox) 400 mg PO DAILY TRISTA PRN Reason: Protocol Stop: 04/20/18 09:01 Last Admin: 10/20/17 08:23 Dose: 400 mg Naloxone HCl (Narcan) 0.4 mg IVP Q2MIN PRN PRN Reason: SEE COMMENTS Stop: 04/19/18 09:43 Prednisone (Prednisone) 40 mg PO DAILY TRISTA Stop: 04/21/18 09:01 Vitamin D (Vitamin D) 1,000 unit PO DAILY TRISTA Stop: 04/20/18 09:01 Last Admin: 10/20/17 08:22 Dose: 1,000 unit Laboratory Tests 10/18/17 10/18/17 10/18/17 07:46 13:38 19:13 WBC Hgb Creatinine 1.07 Troponin I 0.04 H* 0.05 H* 0.04 H* B-Natriuretic Peptide 10/19/17 10/19/17 10/20/17 01:49 01:49 02:46 WBC 25.5 H D Hgb 12.1 Creatinine Troponin I 0.04 H* B-Natriuretic Peptide 878 H 10/20/17 10/20/17 02:46 02:46 WBC Hgb Creatinine 1.28 H Troponin I 0.05 H* B-Natriuretic Peptide - Imaging and Cardiology Chest Xray: report reviewed Echo: report reviewed - EKG Interpretation EKG results cardiology: personally reviewed (ECG with ST, HR 114.), other ( Telemetry reviewed with average HR previous 12 hours noted to be 114, ST. PVCs noted.) Consult Discharge Plan - Plan Referrals: Mook Vyas MD [Primary Care Provider] - <Rebeca Covarrubias - Last Filed: 10/20/17 14:28> Date of Encounter: 10/20/17 - Attending Attestation I have personally performed a face to face evaluation on this patient. I have reviewed and agree with the care plan. History and Exam by me shows: 76 YOF with h/o CICM and recent improved EF from 15% to 40% now at 35% on ECHO. She has severe underlying lung disease possible pneumonia on Abx. BNP is mildly elevated out of proportion to her SOB. She is on Bipap now for resp insufficiency. Previously nml coronaries on [facility] and know NICM follows with CHF clinic. Treat underlying lung disease primarily, likely culprit for volume overload and mild trops. known NICM and hence conservative managementwith gentle diuresis only as needed (worsening renal function after lasix). Would not be aggressive with diuresis as BNP low for age and significance of SOB Assessment and Plan Discussion w patient/family: The assessment and plan as outlined above was discussed with the patient and/or family members who expressed understanding and agreement. All questions were answered. Thank you for involving us in the care of your patient. Please call with any questions. History of Present Illness History of present illness: Ms. Jc is a 76 year old female All Systems Review: The remainder of the systems were reviewed and are negative Physical Examination Vital Signs, Last 4 Hours Temp Pulse Resp BP Pulse Ox 10/20/17 11:29 97.5 F L 106 18 99/61 96 10/20/17 11:00 25 97 Results 10/20/17 02:46 10/20/17 02:46 Lab Results 10/20/17 10/20/17 10/20/17 02:46 02:46 02:46 WBC 25.5 H D Hgb 12.1 Hct 36.8 Plt Count 282 Sodium 136 Potassium 4.5 Chloride 106 Carbon Dioxide 19 L BUN 41 H Creatinine 1.28 H Glucose 177 H Calcium 9.4 Troponin I 0.05 H*
--- NOTE | 2017-10-20 11:13 | Pulmonology Progress Note ---
Date of Encounter: 10/20/17 Time of Encounter: : Assessment and Plan (1) COPD exacerbation Current Visit: Yes Status: Acute Patient has h/o mixed obstructive and restrictive ventilatory pattern , with history recurrent bronchitis in the past will treat as COPD flare up complicated Systolic heart failure . To continue bronchodilaors . Today she has worsening of shortness of breadth will put her on BIPAP adjusted the inspiratory time . (2) Acute and chronic respiratory failure with hypoxia Current Visit: Yes Status: Acute Patient Oxygenation is stable secondary to chronic fibrosis following right lower lobectomy now complicated with systolic heart failure and COPD (3) Systolic CHF, acute on chronic Current Visit: Yes Status: Acute ECHO showed EF of 35% with global LV systolic dysfunction with mild pulmonary HTN . To stop IV fluids to do gentle diuresis as tolerated . Patient to follow up with [facility] for heart failure patient is already established there 10/20 ECHO shows global LV dysfunction has episodic shortness of breadth will diurese her more . Will do salt restriction . (4) Pneumonia Current Visit: Yes Status: Acute To continue the current regimen of antibiotics will soon descalate . 10/20 CT chest imgaing showed perihilar ground glass opacity on the left side more suggestive of heart failure vs sometimes atypical pneumonia can present like this . To continue antibiotics for now. Qualifiers: Pneumonia type: due to other aerobic Gram-negative bacteria Laterality: bilateral Lung location: unspecified part of lung Qualified Code(s): J15.6 - Pneumonia due to other Gram-negative bacteria (5) Pulmonary fibrosis Current Visit: Yes Status: Chronic Patient has chronic fibrosis CT chest showed chronic fibrotic changes on the right side the side she got the lung surgery for recurrent lung infection in the past. Subjective Principal diagnosis: CHF exacerbation and possible pneumonia Interval history: Patient is doing well getting better still not back to baseline ,denies any chest pain or tightness , still has on and off shortness of breadth , denies any wheezing has some occasional cough no sputum production . 10/20 Patient is more short of breadth today patient didnt get any lasix yesterday , denies any chest pain or tightness not much with cough and sputum production Objective PUL Vital signs: Last Vital Signs Temp 98.2 F 10/20/17 07:32 Pulse 105 10/20/17 07:32 Resp 25 10/20/17 11:00 BP 107/65 10/20/17 07:32 Pulse Ox 97 10/20/17 11:00 Auscultation: bilateral: wheezes, other (bilateral bibasilar crackles ) Results - Laboratory Findings CBC and BMP: 10/20/17 02:46 10/20/17 02:46 Abnormal lab findings: Abnormal lab results WBC 25.5 K/mcL (4.3-11.1) H D 10/20/17 02:46 MPV 9.3 fL (9.4-12.4) L 10/20/17 02:46 Neutrophils # 23.3 K/mcL (1.6-8.9) H 10/20/17 02:46 VBG pH 7.31 pH Units (7.32-7.42) L 10/18/17 07:58 VBG pCO2 54 mmHg (41-51) H 10/18/17 07:58 Carbon Dioxide 19 mEq/L (23-29) L 10/20/17 02:46 BUN 41 mg/dL (8-23) H 10/20/17 02:46 Creatinine 1.28 mg/dL (0.60-1.20) H 10/20/17 02:46 Est GFR ( Amer) 49 (> 60) L 10/20/17 02:46 Est GFR (Non-Af Amer) 41 (> 60) L 10/20/17 02:46 BUN/Creatinine Ratio 32 (6-26) H 10/20/17 02:46 Glucose 177 mg/dL (70-105) H 10/20/17 02:46 Lactic Acid 3.2 mmol/L (0.5-2.2) H 10/18/17 22:29 Magnesium 1.2 mg/dL (1.6-2.6) L 10/19/17 01:49 Troponin I 0.05 ng/mL (< 0.04) H* 10/20/17 02:46 B-Natriuretic Peptide 878 pg/mL (Less than 100) H 10/19/17 01:49 - Clinical Findings Intake & Output: Intake & Output 10/19/17 10/20/17 10/20/17 23:59 07:59 15:59 Intake Total 100 / 100 Balance 100 / 100 Weight 75.9 kg Consult Discharge Plan - Plan Referrals: Mook Vyas MD [Primary Care Provider] -
[2017-10-20] MEDS: predniSONE 20 MG TABLET PO SCH (13:26)
--- NOTE | 2017-10-20 13:51 | Internal Med Progress Note ---
Date of Encounter: 10/20/17 Time of Encounter: 14:08 - Assessment and plan (1) Acute and chronic respiratory failure with hypoxia Current Visit: Yes Status: Acute Assessment and plan: Possibly from Pulm fibrosis flare and pneumonia Also associted possible pulm edema from CHF CT scan from 10/19 noted Cont O2 supplement Continue antbiotics-Cefepime , added linezolid Cultures negative for now Continue steroids and bronchodilators (2) Elevated troponin Current Visit: Yes Status: Acute Assessment and plan: Elevated troponin denies chest pain, EKG showed a sinus tachycardia without ST elevation or depression. Will follow-up troponin 3 Likely demand ischemia from pneumonia and respiratory failure ECHO with EF 35%,known low EF, but new multiple WMA Euvolemic at this time, slight bump in Cr from one dose of lasix, continue to monitor cardio eval, recommends possible oral lasix, will monitor chem and start po lasix if renal function stable received 40mg IV lasix today by Pulm, will continue to monitor (3) Hx of breast cancer Current Visit: Yes Status: Chronic Assessment and plan: In 1999, patient had a bilateral mastectomy s/p chemotherapy (4) Pneumonia Current Visit: Yes Status: Acute Assessment and plan: as in resp failure CT scan report noted Qualifiers: Pneumonia type: due to other aerobic Gram-negative bacteria Laterality: bilateral Lung location: unspecified part of lung Qualified Code(s): J15.6 - Pneumonia due to other Gram-negative bacteria (5) Pulmonary fibrosis Current Visit: Yes Status: Chronic Assessment and plan: unlikely idopathic, possibly due to fibrosis from prior R lobectomy mgt as in resp failure (6) Systolic CHF, acute on chronic Current Visit: Yes Status: Acute Assessment and plan: Elevated BNP ECHO with EF 35%,WMA, patient with SOB Elevated cr from 1.0 to 1.29 this a.m, received one dose of laisx IV Will hold lasix for now Cardio eval (7) Hx of bronchiectasis Current Visit: Yes Status: Chronic Assessment and plan: Patient had a history of bronchiectasis when she was teenager, stated post right lower lobectomy - Time Spent With Patient Total time spent is greater than 50% in coordination of care (as documented) at patient's floor/unit and/or counseling patient: - Subjective Interval history: Seen and examined at the bedside with spouse She is being managed for acute hypoxic resp failure secondary to PNA on top of Pulmonary fibrosis, she also has COPD, Systolic CHF, non-ischemic CMP, She is now on BIPAP She is being followed by cardio and Pulm She also has azotemia with slightly elevated Creatinine, stable this a.m She says her breathing is now better, compared to prior - Constitutional Vitals: Temp Pulse Resp BP Pulse Ox 97.5 F L 106 18 99/61 96 10/20/17 11:29 10/20/17 11:29 10/20/17 11:29 10/20/17 11:29 10/20/17 11:29 General appearance: Present: A&O X 3, pleasant, no acute distress, answers questions appropriately - Head Head exam: Present: atraumatic, normocephalic - Eye Eye exam: Present: PERRL, conjuntiva pink, sclera anicteric Pupils: Present: PERRL Additional comments: Rosacea - Neck Neck exam general surgery: Present: supple, trachea midline. Absent: lymphadenopathy - Respiratory Respiratory exam: Present: decreased breath sounds, rhonchi (RML/RLL). Absent: accessory muscle use, rales, wheezes - Cardiovascular Cardiovascular exam: Present: RRR, +S1, +S2. Absent: diastolic murmur, gallop, rubs, systolic murmur - GI/Abdominal GI/Abdominal exam: Present: normal bowel sounds, soft, no peritoneal signs. Absent: distended, tenderness - Extremities Exam Extremities exam: Present: warm, radial pulses palpable and symmetrical. Absent : calf tenderness, cyanotic, pedal edema - Neurological Exam Neurological exam: Present: alert, CN II-XII intact, oriented X3, no focal deficits. Absent: pronater drift, facial droop, speech deficit - Skin Skin exam: Present: dry, intact Internal Medicine: Result - Labs CBC & Chem 7: 10/20/17 02:46 10/20/17 02:46 Labs: Short CBC 10/20/17 Range/Units 02:46 WBC 25.5 H D (4.3-11.1) K/mcL Hgb 12.1 (11.5-15.4) g/dL Hct 36.8 (35.3-44.9) % Plt Count 282 (140-400) K/mcL Neutrophils # 23.3 H (1.6-8.9) K/mcL BMP 10/20/17 02:46 Sodium 136 Potassium 4.5 Chloride 106 Carbon Dioxide 19 L BUN 41 H Creatinine 1.28 H Glucose 177 H Calcium 9.4 Cardiac Enzymes 10/20/17 Range/Units 02:46 Troponin I 0.05 H* (< 0.04) ng/mL - Impressions Impressions Chest CT 10/19/17 16:13 IMPRESSION: 1. Diminished right lung volume with the fibrocalcific pleural thickening and interstitial fibrosis. 2. Ground-glass pulmonary attenuation in the left perihilar midlung field suggesting interstitial inflammatory process/ edema or alveolitis. 3. Cholelithiasis. D/ / Estuardo Gonzales MD / Estuardo Gonzales MD Interpreting Provider: Estuardo Gonzales MD Chest X-Ray 10/20/17 01:11 IMPRESSION: Stable bilateral airspace disease. D/ / Keith Carson MD / Keith Carson MD Interpreting Provider: Keith Carson MD Consult Discharge Plan - Plan Referrals: Mook Vyas MD [Primary Care Provider] -
--- NOTE | 2017-10-20 14:39 | Electrocardiograph Report ---
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
[2017-10-21] MEDS: Ipratropium/Albuterol Neb 3 ML IH SCH ×5 (03:52→20:18)
[2017-10-21 04:05] LABS: Basophils % 0.1 %; Hematocrit 33.8 % (35.3-44.9); Hemoglobin 11.3 g/dL (11.5-15.4); Immature Granulocytes % 0.9 % (0-4); Lymphocytes # 1.4 K/mcL (0.6-4.6); Lymphocytes % 7.4 %; Mean Corpuscular HGB Conc 33.4 g/dL (31.6-35.5); Mean Corpuscular Hemoglobin 31.2 pg (28.0-33.3); Mean Corpuscular Volume 93.4 fL (83.0-100.0); Mean Platelet Volume 9.7 fL (9.4-12.4); Monocytes # 1.6 K/mcL (0.0-1.3); Monocytes % 8.9 %; Platelet Count 230 K/mcL (140-400); Red Blood Count 3.62 M/mcL (3.82-4.97); Red Cell Distribution Width 13.7 % (11.5-14.5); Segmented Neutrophils % 82.7 %
[2017-10-21 04:23] LABS: Calcium 9.1 mg/dL (8.6-10.3); Potassium 4.1 mEq/L (3.5-5.1)
[2017-10-21] MEDS: Cefepime HCl 2,000 MG in 0.9 % Sodium Chloride Mini Bag 100 ML IVPB SCH (06:19)
[2017-10-21] MEDS: *HR* Heparin 5,000 UNIT/ML VIAL SQ SCH ×2 (06:20→17:28)
[2017-10-21] MEDS: Budesonide/Formoterol 160/4.5 MDI IH SCH ×2 (07:57→20:18)
[2017-10-21] MEDS: predniSONE 20 MG TABLET PO SCH (09:06)
[2017-10-21] MEDS: Levofloxacin 750 MG/150 ML 750 MG/150 ML BAG IVPB SCH (09:06)
[2017-10-21] MEDS: Cholecalciferol (D-3) 1,000 UNIT TABLET PO SCH (09:06)
[2017-10-21] MEDS: Magnesium Oxide 400 MG TABLET PO SCH (09:06)
--- NOTE | 2017-10-21 11:51 | Pulmonology Progress Note ---
Date of Encounter: 10/21/17 Time of Encounter: 11:00 Assessment and Plan (1) COPD exacerbation Current Visit: Yes Status: Acute Patient has h/o mixed obstructive and restrictive ventilatory pattern , with history recurrent bronchitis in the past will treat as COPD flare up complicated Systolic heart failure . To continue bronchodilaors . Today she has worsening of shortness of breadth will put her on BIPAP adjusted the inspiratory time . 10/21 Patient is doing lot better continue bronchodilators and steroids .To continue BIPAP at night . (2) Acute and chronic respiratory failure with hypoxia Current Visit: Yes Status: Acute Patient Oxygenation is stable secondary to chronic fibrosis following right lower lobectomy now complicated with systolic heart failure and COPD 10/21 Will need O2 on exertion on discharge . (3) Systolic CHF, acute on chronic Current Visit: Yes Status: Chronic ECHO showed EF of 35% with global LV systolic dysfunction with mild pulmonary HTN . To stop IV fluids to do gentle diuresis as tolerated . Patient to follow up with [facility] for heart failure patient is already established there 10/20 ECHO shows global LV dysfunction has episodic shortness of breadth will diurese her more . Will do salt restriction . 10/21 Responded well to diuresis yesterday could not diurese today because of bump in creatinine (4) Pneumonia Current Visit: Yes Status: Acute To continue the current regimen of antibiotics will soon descalate . the 10/20 CT chest imgaing showed perihilar ground glass opacity on the left side more suggestive of heart failure vs sometimes atypical pneumonia can present like this . To continue antibiotics for now. 10/21 Will check Nasal MRSA screen if it is negative it has high negative predictive value then we can stop Linezolid .Will need atleast 10 days of atypical coverage with Levaquin . Qualifiers: Pneumonia type: due to other aerobic Gram-negative bacteria Laterality: bilateral Lung location: unspecified part of lung Qualified Code(s): J15.6 - Pneumonia due to other Gram-negative bacteria (5) Pulmonary fibrosis Current Visit: Yes Status: Chronic Patient has chronic fibrosis CT chest showed chronic fibrotic changes on the right side the side she got the lung surgery for recurrent lung infection in the past. Subjective Principal diagnosis: CHF exacerbation and possible pneumonia Interval history: Patient is doing well getting better still not back to baseline ,denies any chest pain or tightness , still has on and off shortness of breadth , denies any wheezing has some occasional cough no sputum production . 10/20 Patient is more short of breadth today patient didnt get any lasix yesterday , denies any chest pain or tightness not much with cough and sputum production 10/21 Patient is off BIPAP denies having any chest pain or tightness her shortness of breadth is lot better . Objective PUL Vital signs: Last Vital Signs Temp 97.5 F L 10/21/17 10:31 Pulse 98 10/21/17 10:31 Resp 16 10/21/17 11:23 BP 93/63 10/21/17 10:31 Pulse Ox 99 10/21/17 11:23 Auscultation: bilateral: other (scattered crackles ) Results - Laboratory Findings CBC and BMP: 10/21/17 03:42 10/21/17 03:42 Abnormal lab findings: Abnormal lab results WBC 18.2 K/mcL (4.3-11.1) H 10/21/17 03:42 RBC 3.62 M/mcL (3.82-4.97) L 10/21/17 03:42 Hgb 11.3 g/dL (11.5-15.4) L 10/21/17 03:42 Hct 33.8 % (35.3-44.9) L 10/21/17 03:42 Neutrophils # 15.0 K/mcL (1.6-8.9) H 10/21/17 03:42 Monocytes # 1.6 K/mcL (0.0-1.3) H 10/21/17 03:42 VBG pH 7.31 pH Units (7.32-7.42) L 10/18/17 07:58 VBG pCO2 54 mmHg (41-51) H 10/18/17 07:58 BUN 50 mg/dL (8-23) H 10/21/17 03:42 Creatinine 1.35 mg/dL (0.60-1.20) H 10/21/17 03:42 Est GFR ( Amer) 46 (> 60) L 10/21/17 03:42 Est GFR (Non-Af Amer) 38 (> 60) L 10/21/17 03:42 BUN/Creatinine Ratio 37 (6-26) H 10/21/17 03:42 Glucose 135 mg/dL (70-105) H 10/21/17 03:42 Lactic Acid 3.2 mmol/L (0.5-2.2) H 10/18/17 22:29 Troponin I 0.05 ng/mL (< 0.04) H* 10/20/17 02:46 B-Natriuretic Peptide 878 pg/mL (Less than 100) H 10/19/17 01:49 - Microbiology Findings Microbiology Findings: Microbiology, Last 48 Hours 10/21/17 01:55 Sputum Culture - Preliminary Sputum 10/20/17 23:55 Legionella Antigen - Final Urine,Clean Catch Streptococcus pneumoniae Antigen (M - Final - Clinical Findings Intake & Output: Intake & Output 10/20/17 10/21/17 10/21/17 23:59 07:59 15:59 Intake Total 650 / 650 240 / 240 Output Total 650 / 650 200 / 200 400 / 400 Balance 0 / 0 -200 / -200 -160 / -160 Weight 76.2 kg Consult Discharge Plan - Plan Referrals: Mook Vyas MD [Primary Care Provider] -
--- NOTE | 2017-10-21 13:43 | Internal Med Progress Note ---
Date of Encounter: 10/21/17 Time of Encounter: 13:40 - Assessment and plan (1) Acute and chronic respiratory failure with hypoxia Current Visit: Yes Status: Acute Assessment and plan: Possibly from Pulm fibrosis flare and pneumonia Also associated possible pulm edema from CHF CT scan from 10/19 noted Cont O2 supplement Continue antibiotics- Cultures negative for now Continue steroids and bronchodilators (2) Elevated troponin Current Visit: Yes Status: Acute Assessment and plan: Elevated troponin denies chest pain, EKG showed a sinus tachycardia without ST elevation or depression. Will follow-up troponin 3 Likely demand ischemia from pneumonia and respiratory failure ECHO with EF 35%,known low EF, but new multiple WMA Euvolemic at this time, slight bump in Cr from one dose of lasix, continue to monitor cardio eval, recommends possible oral lasix, will monitor chem and start po lasix if renal function stable received 40mg IV lasix 10/20, by Pulm, will continue to monitor Continue to monitor Patient is established at [facility], recommend follow up as out-patient (3) Hx of breast cancer Current Visit: Yes Status: Chronic Assessment and plan: In 1999, patient had a bilateral mastectomy s/p chemotherapy (4) Pneumonia Current Visit: Yes Status: Acute Assessment and plan: as in resp failure CT scan report noted Qualifiers: Pneumonia type: due to other aerobic Gram-negative bacteria Laterality: bilateral Lung location: unspecified part of lung Qualified Code(s): J15.6 - Pneumonia due to other Gram-negative bacteria (5) Pulmonary fibrosis Current Visit: Yes Status: Chronic Assessment and plan: unlikely idopathic, possibly due to fibrosis from prior R lobectomy mgt as in resp failure (6) Systolic CHF, acute on chronic Current Visit: Yes Status: Chronic Assessment and plan: Elevated BNP ECHO with EF 35%,WMA, patient with SOB Elevated cr from 1.0 to 1.29 this a.m, received one dose of laisx IV Will hold lasix for now Cardio eval noted, appreciated (7) Hx of bronchiectasis Current Visit: Yes Status: Chronic Assessment and plan: Patient had a history of bronchiectasis when she was teenager, stated post right lower lobectomy (8) CKD (chronic kidney disease) stage 3, GFR 30-59 ml/min Current Visit: Yes Status: Acute Assessment and plan: Slightly worsening renal function due to Lasix. Continue to hold Lasix, received Lasix yesterday by pulmonology, making urine, continue to monitor. - Time Spent With Patient Total time spent is greater than 50% in coordination of care (as documented) at patient's floor/unit and/or counseling patient: - Subjective Interval history: Seen and examined at the bedside with spouse She is being managed for acute hypoxic resp failure secondary to PNA on top of Pulmonary fibrosis, she also has COPD, Systolic CHF, non-ischemic CMP, She is now on BIPAP She is being followed by cardio and Pulm She also has azotemia with slightly elevated Creatinine, slightly worse this a.m She says her breathing is now better, compared to prior - Constitutional Vitals: Temp Pulse Resp BP Pulse Ox 97.5 F L 98 16 93/63 99 10/21/17 10:31 10/21/17 10:31 10/21/17 11:23 10/21/17 10:10/21/17 11:23 General appearance: Present: A&O X 3, pleasant, no acute distress, answers questions appropriately - Head Head exam: Present: atraumatic, normocephalic - Eye Eye exam: Present: PERRL, conjuntiva pink, sclera anicteric Pupils: Present: PERRL - Neck Neck exam general surgery: Present: supple, trachea midline. Absent: lymphadenopathy - Respiratory Respiratory exam: Present: CTAB. Absent: accessory muscle use, rales, rhonchi, wheezes - Cardiovascular Cardiovascular exam: Present: RRR, +S1, +S2. Absent: diastolic murmur, gallop, rubs, systolic murmur - GI/Abdominal GI/Abdominal exam: Present: normal bowel sounds, soft, no peritoneal signs. Absent: distended, tenderness - Extremities Exam Extremities exam: Present: warm, radial pulses palpable and symmetrical. Absent : calf tenderness, cyanotic, pedal edema - Neurological Exam Neurological exam: Present: alert, CN II-XII intact, oriented X3, no focal deficits. Absent: pronater drift, facial droop, speech deficit - Skin Skin exam: Present: dry, intact Internal Medicine: Result - Labs CBC & Chem 7: 10/21/17 03:42 10/21/17 03:42 Labs: Short CBC 10/21/17 Range/Units 03:42 WBC 18.2 H (4.3-11.1) K/mcL Hgb 11.3 L (11.5-15.4) g/dL Hct 33.8 L (35.3-44.9) % Plt Count 230 (140-400) K/mcL Neutrophils # 15.0 H (1.6-8.9) K/mcL [facility] 10/21/17 03:42 Sodium 137 Potassium 4.1 Chloride 105 Carbon Dioxide 23 BUN 50 H Creatinine 1.35 H Glucose 135 H Calcium 9.1 Consult Discharge Plan - Plan Referrals: Mook Vyas MD [Primary Care Provider] -
[2017-10-22] MEDS: Ipratropium/Albuterol Neb 3 ML IH SCH ×8 (01:03→23:45)
[2017-10-22 05:21] LABS: Basophils % 0.2 %; Eosinophils % 0.1 %; Hemoglobin 11.1 g/dL (11.5-15.4); Immature Granulocytes % 1.6 % (0-4); Lymphocytes # 1.8 K/mcL (0.6-4.6); Lymphocytes % 14.1 %; Mean Corpuscular HGB Conc 32.6 g/dL (31.6-35.5); Mean Corpuscular Hemoglobin 30.4 pg (28.0-33.3); Mean Corpuscular Volume 93.2 fL (83.0-100.0); Mean Platelet Volume 9.6 fL (9.4-12.4); Monocytes # 1.3 K/mcL (0.0-1.3); Monocytes % 10.7 %; Neutrophils # 9.1 K/mcL (1.6-8.9); Platelet Count 229 K/mcL (140-400); Red Blood Count 3.65 M/mcL (3.82-4.97); Red Cell Distribution Width 13.4 % (11.5-14.5); Segmented Neutrophils % 73.3 %
[2017-10-22 05:40] LABS: Calcium 8.8 mg/dL (8.6-10.3)
[2017-10-22] MEDS ORDERED: Cefepime HCl 2,000 MG in 0.9 % Sodium Chloride Mini Bag 100 ML IVPB SCH (06:00)
[2017-10-22] MEDS: *HR* Heparin 5,000 UNIT/ML VIAL SQ SCH ×2 (06:10→17:24)
[2017-10-22] MEDS: Budesonide/Formoterol 160/4.5 MDI IH SCH ×2 (07:38→20:29)
[2017-10-22] MEDS: Cholecalciferol (D-3) 1,000 UNIT TABLET PO SCH (09:23)
[2017-10-22] MEDS: Magnesium Oxide 400 MG TABLET PO SCH (09:23)
[2017-10-22] MEDS: predniSONE 20 MG TABLET PO SCH (09:23)
--- NOTE | 2017-10-22 13:40 | Pulmonology Progress Note ---
Date of Encounter: 10/22/17 Time of Encounter: 13:00 Assessment and Plan (1) COPD exacerbation Current Visit: Yes Status: Acute Patient has h/o mixed obstructive and restrictive ventilatory pattern , with history recurrent bronchitis in the past will treat as COPD flare up complicated Systolic heart failure . To continue bronchodilaors . Today she has worsening of shortness of breadth will put her on BIPAP adjusted the inspiratory time . 10/21 Patient is doing lot better continue bronchodilators and steroids .To continue BIPAP at night . 10/22 To continue and bronchodilators she will need a 12 day taper of steroid . Will start using her home CPAP when she is going home, (2) Acute and chronic respiratory failure with hypoxia Current Visit: Yes Status: Acute Patient Oxygenation is stable secondary to chronic fibrosis following right lower lobectomy now complicated with systolic heart failure and COPD 10/21 Will need O2 on exertion on discharge . 10/22 Told her she will need O2 on discharge she will need 6-8 weeks till the inflammation settles (3) Systolic CHF, acute on chronic Current Visit: Yes Status: Chronic ECHO showed EF of 35% with global LV systolic dysfunction with mild pulmonary HTN . To stop IV fluids to do gentle diuresis as tolerated . Patient to follow up with [facility] for heart failure patient is already established there 10/20 ECHO shows global LV dysfunction has episodic shortness of breadth will diurese her more . Will do salt restriction . 10/21 Responded well to diuresis yesterday could not diurese today because of bump in creatinine 10/22 Clinically she looks Euvolemic (4) Pneumonia Current Visit: Yes Status: Acute To continue the current regimen of antibiotics will soon descalate . the 10/20 CT chest imgaing showed perihilar ground glass opacity on the left side more suggestive of heart failure vs sometimes atypical pneumonia can present like this . To continue antibiotics for now. 10/21 Will check Nasal MRSA screen if it is negative it has high negative predictive value then we can stop Linezolid .Will need atleast 10 days of atypical coverage with Levaquin . 10/22 Will complete the 10 day course of Levofloxacin Qualifiers: Pneumonia type: due to other aerobic Gram-negative bacteria Laterality: bilateral Lung location: unspecified part of lung Qualified Code(s): J15.6 - Pneumonia due to other Gram-negative bacteria (5) Pulmonary fibrosis Current Visit: Yes Status: Chronic Patient has chronic fibrosis CT chest showed chronic fibrotic changes on the right side the side she got the lung surgery for recurrent lung infection in the past. Subjective Principal diagnosis: CHF exacerbation and possible pneumonia Interval history: Patient is doing well getting better still not back to baseline ,denies any chest pain or tightness , still has on and off shortness of breadth , denies any wheezing has some occasional cough no sputum production . 10/20 Patient is more short of breadth today patient didnt get any lasix yesterday , denies any chest pain or tightness not much with cough and sputum production 10/21 Patient is off BIPAP denies having any chest pain or tightness her shortness of breadth is lot better . 10/22 Patient is getting better had some cough and sputum denies any hemoptysis her exercise tolerance is lot better. Objective PUL Vital signs: Last Vital Signs Temp 97.5 F L 10/22/17 12:39 Pulse 103 10/22/17 12:39 Resp 16 10/22/17 12:39 BP 96/63 10/22/17 12:39 Pulse Ox 98 10/22/17 12:39 Auscultation: right: rales (has some scattered rales ) Results - Laboratory Findings CBC and BMP: 10/22/17 04:40 10/22/17 04:40 Abnormal lab findings: Abnormal lab results WBC 12.4 K/mcL (4.3-11.1) H 10/22/17 04:40 RBC 3.65 M/mcL (3.82-4.97) L 10/22/17 04:40 Hgb 11.1 g/dL (11.5-15.4) L 10/22/17 04:40 Hct 34.0 % (35.3-44.9) L 10/22/17 04:40 Neutrophils # 9.1 K/mcL (1.6-8.9) H 10/22/17 04:40 VBG pH 7.31 pH Units (7.32-7.42) L 10/18/17 07:58 VBG pCO2 54 mmHg (41-51) H 10/18/17 07:58 BUN 44 mg/dL (8-23) H 10/22/17 04:40 Creatinine 1.46 mg/dL (0.60-1.20) H 10/22/17 04:40 Est GFR ( Amer) 42 (> 60) L 10/22/17 04:40 Est GFR (Non-Af Amer) 35 (> 60) L 10/22/17 04:40 BUN/Creatinine Ratio 30 (6-26) H 10/22/17 04:40 Glucose 136 mg/dL (70-105) H 10/22/17 04:40 Calculated Osmolality 301 (280-300) H 10/22/17 04:40 Lactic Acid 3.2 mmol/L (0.5-2.2) H 10/18/17 22:29 Troponin I 0.05 ng/mL (< 0.04) H* 10/20/17 02:46 B-Natriuretic Peptide 878 pg/mL (Less than 100) H 10/19/17 01:49 - Microbiology Findings Microbiology Findings: Microbiology, Last 48 Hours 10/21/17 01:55 Sputum Culture - Preliminary Sputum 10/20/17 23:55 Legionella Antigen - Final Urine,Clean Catch Streptococcus pneumoniae Antigen (M - Final - Clinical Findings Intake & Output: Intake & Output 10/21/17 10/22/17 10/22/17 23:59 07:59 15:59 Intake Total 240 / 240 200 / 200 0 / 0 Output Total 0 / 0 300 / 300 500 / 500 Balance 240 / 240 -100 / -100 -500 / -500 Weight 74.752 kg Consult Discharge Plan - Plan Referrals: Mook Vyas MD [Primary Care Provider] -
--- NOTE | 2017-10-22 16:13 | Internal Med Progress Note ---
Date of Encounter: 10/22/17 Time of Encounter: 16:13 - Assessment and plan (1) Acute and chronic respiratory failure with hypoxia Current Visit: Yes Status: Acute Assessment and plan: Possibly from Pulm fibrosis flare and pneumonia Also associated possible pulm edema from CHF CT scan from 10/19 noted Cont O2 supplement Continue antibiotics-may discontinue zyvox, MRSA screen negative, for total 10 days of levaquin Cultures negative for now Continue steroids and bronchodilators (2) Elevated troponin Current Visit: Yes Status: Acute Assessment and plan: Elevated troponin denies chest pain, EKG showed a sinus tachycardia without ST elevation or depression. Will follow-up troponin 3 Likely demand ischemia from pneumonia and respiratory failure ECHO with EF 35%,known low EF, but new multiple WMA Euvolemic at this time, slight bump in Cr from one dose of lasix, continue to monitor cardio eval, recommends possible oral lasix, will monitor chem and start po lasix if renal function stable received 40mg IV lasix 10/20, by Pulm, will continue to monitor Continue to monitor Patient is established at [facility], recommend follow up as out-patient (3) Hx of breast cancer Current Visit: Yes Status: Chronic Assessment and plan: In 1999, patient had a bilateral mastectomy s/p chemotherapy (4) Pneumonia Current Visit: Yes Status: Acute Assessment and plan: as in resp failure CT scan report noted Qualifiers: Pneumonia type: due to other aerobic Gram-negative bacteria Laterality: bilateral Lung location: unspecified part of lung Qualified Code(s): J15.6 - Pneumonia due to other Gram-negative bacteria (5) Pulmonary fibrosis Current Visit: Yes Status: Chronic Assessment and plan: unlikely idopathic, possibly due to fibrosis from prior R lobectomy mgt as in resp failure (6) Systolic CHF, acute on chronic Current Visit: Yes Status: Chronic Assessment and plan: Elevated BNP ECHO with EF 35%,WMA, patient with SOB Elevated cr from 1.0 to 1.46 this a.m, received one dose of laisx IV Continue to hold lasix for now Cardio eval noted, appreciated (7) Hx of bronchiectasis Current Visit: Yes Status: Chronic Assessment and plan: Patient had a history of bronchiectasis when she was teenager, stated post right lower lobectomy (8) CKD (chronic kidney disease) stage 3, GFR 30-59 ml/min Current Visit: Yes Status: Acute Assessment and plan: Slightly worsening renal function due to Lasix. Avoid nephrotoxins Encourage liberal fluid intake - Time Spent With Patient Total time spent is greater than 50% in coordination of care (as documented) at patient's floor/unit and/or counseling patient: - Subjective Interval history: Seen and examined at the bedside with spouse She is being managed for acute hypoxic resp failure secondary to PNA on top of Pulmonary fibrosis, she also has COPD, Systolic CHF, non-ischemic CMP, She has no new medical complains She is being followed by cardio and Pulm She also has azotemia with slightly elevated Creatinine, slightly worse this a.m She says her breathing is now better, compared to prior She qualified for home O2 encouraged liberal fluid intake po MRSA screen is negative - Constitutional Vitals: Temp Pulse Resp BP Pulse Ox 97.7 F 112 14 111/68 99 10/22/17 15:56 10/22/17 15:56 10/22/17 15:56 10/22/17 15:56 10/22/17 15:56 General appearance: Present: A&O X 3, pleasant, no acute distress, answers questions appropriately - Head Head exam: Present: atraumatic, normocephalic - Eye Eye exam: Present: PERRL, conjuntiva pink, sclera anicteric Pupils: Present: PERRL - Neck Neck exam general surgery: Present: supple, trachea midline. Absent: lymphadenopathy - Respiratory Respiratory exam: Present: CTAB. Absent: accessory muscle use, rales, rhonchi, wheezes - Cardiovascular Cardiovascular exam: Present: RRR, +S1, +S2. Absent: diastolic murmur, gallop, rubs, systolic murmur - GI/Abdominal GI/Abdominal exam: Present: normal bowel sounds, soft, no peritoneal signs. Absent: distended, tenderness - Extremities Exam Extremities exam: Present: warm, radial pulses palpable and symmetrical. Absent : calf tenderness, cyanotic, pedal edema - Neurological Exam Neurological exam: Present: alert, CN II-XII intact, oriented X3, no focal deficits. Absent: pronater drift, facial droop, speech deficit - Skin Skin exam: Present: dry, intact Internal Medicine: Result - Labs CBC & Chem 7: 10/22/17 04:40 10/22/17 04:40 Labs: Short CBC 10/22/17 Range/Units 04:40 WBC 12.4 H (4.3-11.1) K/mcL Hgb 11.1 L (11.5-15.4) g/dL Hct 34.0 L (35.3-44.9) % Plt Count 229 (140-400) K/mcL Neutrophils # 9.1 H (1.6-8.9) K/mcL BMP 10/22/17 04:40 Sodium 139 Potassium 4.0 Chloride 106 Carbon Dioxide 27 BUN 44 H Creatinine 1.46 H Glucose 136 H Calcium 8.8 Consult Discharge Plan - Plan Referrals: Mook Vyas MD [Primary Care Provider] -
[2017-10-23] MEDS: Ipratropium/Albuterol Neb 3 ML IH SCH ×3 (03:50→11:05)
[2017-10-23 04:20] LABS: Calcium 8.7 mg/dL (8.6-10.3); Potassium 3.8 mEq/L (3.5-5.1)
[2017-10-23 04:23] LABS: Basophils % 0.4 %; Eosinophils % 0.1 %; Hematocrit 33.6 % (35.3-44.9); Hemoglobin 10.9 g/dL (11.5-15.4); Immature Granulocytes % 2.7 % (0-4); Lymphocytes # 1.7 K/mcL (0.6-4.6); Lymphocytes % 15.9 %; Mean Corpuscular HGB Conc 32.4 g/dL (31.6-35.5); Mean Corpuscular Hemoglobin 30.3 pg (28.0-33.3); Mean Corpuscular Volume 93.3 fL (83.0-100.0); Mean Platelet Volume 9.9 fL (9.4-12.4); Monocytes % 9.4 %; Neutrophils # 7.7 K/mcL (1.6-8.9); Platelet Count 227 K/mcL (140-400); Red Cell Distribution Width 13.7 % (11.5-14.5); Segmented Neutrophils % 71.5 %
[2017-10-23] MEDS: *HR* Heparin 5,000 UNIT/ML VIAL SQ SCH (06:17)
[2017-10-23] MEDS: Budesonide/Formoterol 160/4.5 MDI IH SCH (07:31)
--- NOTE | 2017-10-23 09:02 | Pulmonology Progress Note ---
Date of Encounter: 10/23/17 Time of Encounter: 08: Assessment and Plan (1) COPD exacerbation Status: Acute Patient has h/o mixed obstructive and restrictive ventilatory pattern , with history recurrent bronchitis in the past will treat as COPD flare up complicated Systolic heart failure . To continue bronchodilaors . Today she has worsening of shortness of breadth will put her on BIPAP adjusted the inspiratory time . 10/21 Patient is doing lot better continue bronchodilators and steroids .To continue BIPAP at night . 10/22 To continue and bronchodilators she will need a 12 day taper of steroid . Will start using her home CPAP when she is going home, 10/23 Send home on MARIOLA , ICS/LABA ,12 day steroid taper (2) Acute and chronic respiratory failure with hypoxia Status: Resolved Patient Oxygenation is stable secondary to chronic fibrosis following right lower lobectomy now complicated with systolic heart failure and COPD 10/21 Will need O2 on exertion on discharge . 10/22 Told her she will need O2 on discharge she will need 6-8 weeks till the inflammation settles 10/23 Ascertain home O2 requirements (3) Systolic CHF, acute on chronic Status: Chronic ECHO showed EF of 35% with global LV systolic dysfunction with mild pulmonary HTN . To stop IV fluids to do gentle diuresis as tolerated . Patient to follow up with [facility] for heart failure patient is already established there 10/20 ECHO shows global LV dysfunction has episodic shortness of breadth will diurese her more . Will do salt restriction . 10/21 Responded well to diuresis yesterday could not diurese today because of bump in creatinine 10/22 Clinically she looks Euvolemic 10/23 Clinically she is Euvolemic salt and water restriction , follow up with [facility] heart failure service (4) Pneumonia Status: Acute To continue the current regimen of antibiotics will soon descalate . the 10/20 CT chest imgaing showed perihilar ground glass opacity on the left side more suggestive of heart failure vs sometimes atypical pneumonia can present like this . To continue antibiotics for now. 10/21 Will check Nasal MRSA screen if it is negative it has high negative predictive value then we can stop Linezolid .Will need atleast 10 days of atypical coverage with Levaquin . 10/22 Will complete the 10 day course of Levofloxacin 10/23 To complete total day course of Levofloxacin. Qualifiers: Pneumonia type: due to other aerobic Gram-negative bacteria Laterality: bilateral Lung location: unspecified part of lung Qualified Code(s): J15.6 - Pneumonia due to other Gram-negative bacteria (5) Pulmonary fibrosis Status: Chronic Patient has chronic fibrosis CT chest showed chronic fibrotic changes on the right side the side she got the lung surgery for recurrent lung infection in the past. Subjective Principal diagnosis: CHF exacerbation and possible pneumonia Interval history: Patient is doing well getting better still not back to baseline ,denies any chest pain or tightness , still has on and off shortness of breadth , denies any wheezing has some occasional cough no sputum production . 10/20 Patient is more short of breadth today patient didnt get any lasix yesterday , denies any chest pain or tightness not much with cough and sputum production 10/21 Patient is off BIPAP denies having any chest pain or tightness her shortness of breadth is lot better . 10/22 Patient is getting better had some cough and sputum denies any hemoptysis her exercise tolerance is lot better. 10/23 Patient is almost baseline her cough is minimal Objective PUL Vital signs: Last Vital Signs Temp 98 F 10/23/17 03:46 Pulse 101 10/23/17 03:46 Resp 18 10/23/17 07:34 BP 106/62 10/23/17 03:46 Pulse Ox 97 10/23/17 07:34 Auscultation: right: other (crackles ) Results - Laboratory Findings CBC and BMP: 10/23/17 03:20 10/23/17 03:20 Abnormal lab findings: Abnormal lab results RBC 3.60 M/mcL (3.82-4.97) L 10/23/17 03:20 Hgb 10.9 g/dL (11.5-15.4) L 10/23/17 03:20 Hct 33.6 % (35.3-44.9) L 10/23/17 03:20 VBG pH 7.31 pH Units (7.32-7.42) L 10/18/17 07:58 VBG pCO2 54 mmHg (41-51) H 10/18/17 07:58 BUN 36 mg/dL (8-23) H 10/23/17 03:20 Creatinine 1.34 mg/dL (0.60-1.20) H 10/23/17 03:20 Est GFR ( Amer) 47 (> 60) L 10/23/17 03:20 Est GFR (Non-Af Amer) 38 (> 60) L 10/23/17 03:20 BUN/Creatinine Ratio 27 (6-26) H 10/23/17 03:20 Glucose 110 mg/dL (70-105) H 10/23/17 03:20 Lactic Acid 3.2 mmol/L (0.5-2.2) H 10/18/17 22:29 Troponin I 0.05 ng/mL (< 0.04) H* 10/20/17 02:46 B-Natriuretic Peptide 878 pg/mL (Less than 100) H 10/19/17 01:49 - Microbiology Findings Microbiology Findings: Microbiology, Last 48 Hours 10/21/17 01:55 Sputum Culture - Final Sputum - Clinical Findings Intake & Output: Intake & Output 10/22/17 10/23/17 10/23/17 23:59 07:59 15:59 Intake Total 120 / 120 Output Total 150 / 150 600 / 600 Balance -150 / -150 -480 / -480 Weight 75.3 kg Consult Discharge Plan - Plan Instructions: Prednisone (By mouth), Levofloxacin (By mouth), Chronic Obstructive Pulmonary Disease (DC), Community-acquired Pneumonia (DC) Referrals: Hank Maria MD [Partnered Physician] - (web request sent to follow up in 6-8 weeks) Mook Vyas MD [Primary Care Provider] - (web request sent 10/23/2017) Prescriptions: Levofloxacin [Levaquin] 750 mg PO Q48H #5 tablet predniSONE [PredniSONE] 40 mg PO DAILY #20 tablet
[2017-10-23] MEDS: Levofloxacin 750 MG/150 ML 750 MG/150 ML BAG IVPB SCH (09:06)
[2017-10-23] MEDS: Cholecalciferol (D-3) 1,000 UNIT TABLET PO SCH (09:06)
[2017-10-23] MEDS: Magnesium Oxide 400 MG TABLET PO SCH (09:06)
[2017-10-23] MEDS: predniSONE 20 MG TABLET PO SCH (09:06)
[2017-10-23 11:01] VITALS: BP 103/62
--- NOTE | 2017-10-23 12:57 | Discharge Summary ---
- NOTES TO OUTPATIENT PROVIDER Notes to Outpatient Provider: Slightly worsening renal function, patient was not on lasix/spironolactone/losartan in-patient, resumed at discharge, kindly repeat Chem to monitor progress. She is discharged on prednisone taper and Levaquin . Folow up with PCP, Cardio, Pulmonology Orders not resulted at time of discharge: Pending orders 10/22/17 11:40 Sputum Culture [Culture,Sputum with Gram Stain] [] Routine Date of Encounter: 10/23/17 Time of Encounter: 12:55 - Discharge Diagnosis (1) Acute and chronic respiratory failure with hypoxia Priority: Primary Status: Resolved Assessment and Plan: Possibly from Pulm fibrosis flare and pneumonia Also associated possible pulm edema from CHF CT scan from 10/19 noted Cont O2 supplement Patient received Zyvox, for 2 days MRSA screen negative Cultures negative for now Continue steroids and bronchodilators To complete 5 more doses of levaquin at home (Q48H) (2) Elevated troponin Priority: Primary Status: Acute Assessment and Plan: Elevated troponin on admission, she denies chest pain, EKG showed a sinus tachycardia without ST elevation or depression. 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 (3) Hx of breast cancer Priority: Secondary Status: Chronic Assessment and Plan: In 1999, patient had a bilateral mastectomy s/p chemotherapy (4) Pneumonia Priority: Primary Status: Acute Assessment and Plan: as in resp failure Qualifiers: Pneumonia type: due to other aerobic Gram-negative bacteria Laterality: bilateral Lung location: unspecified part of lung Qualified Code(s): J15.6 - Pneumonia due to other Gram-negative bacteria (5) Pulmonary fibrosis Priority: Secondary Status: Chronic Assessment and Plan: unlikely idopathic, possibly due to fibrosis from prior R lobectomy (6) Systolic CHF, acute on chronic Priority: Secondary Status: Chronic Assessment and Plan: Elevated BNP ECHO with EF 35%,WMA, patient with SOB Resume home lasix (7) Hx of bronchiectasis Priority: Secondary Status: Chronic (8) CKD (chronic kidney disease) stage 3, GFR 30-59 ml/min Priority: Secondary Status: Chronic Hospital course: Ms. Jc is a 76 year old female with CHFrEF, s/p R lobectomy, R fibrosis, CKD III, COPDE She was admitted for COPDE, acute hypoxic resp failure , PNA She has made significant improvement, respiratory status has improved, she is ambulatory See details of each diagnoses for hosp course, patient is clinically stable to be discharged home to follow up with PCP, Pulmonary, Cardio Discharge discussed with: patient, family, nurse, job service consultant - Time Spent with Patient Total time spent providing and/or coordinating discharge services: Greater than 30 minutes - Discharge Medications Prescriptions: Levofloxacin [Levaquin] 750 mg PO Q48H #5 tablet predniSONE [PredniSONE] 40 mg PO DAILY #20 tablet Home Medications: Albuterol Sulfate [Proair Hfa] 2 puff IH Q4H PRN 10/18/17 [History] Calcium Carb, Citrate/Vit D3 [Calcium + D3 ER Tablet] 1 tab PO DAILY 10/18/17 [ History] Carvedilol [Coreg] 3.125 mg PO BID 10/18/17 [History] Cholecalciferol (Vitamin D3) [Vitamin D3] 4,000 unit PO DAILY 10/18/17 [History] Fish Oil/Dha/Epa [Fish Oil 1,200 mg Fish Oil] 1 cap PO BID 10/18/17 [History] Fluticasone/Salmeterol [Advair 500-50 Diskus] 1 puff IH BID 10/18/17 [History] Furosemide [Lasix] 20 mg PO DAILY PRN 10/18/17 [History] Losartan [Cozaar] 25 mg PO DAILY 10/18/17 [History] Magnesium Oxide [Mag-Ox] 400 mg PO DAILY 10/18/17 [History] Multivitamin [One Daily Multivitamin] 1 tab PO DAILY 10/18/17 [History] Spironolactone [Aldactone] 25 mg PO Q48H 10/18/17 [History] Tiotropium [Spiriva] 18 mcg IH DAILY 10/18/17 [History] Vitamin E Acid Succinate [Vitamin E] 200 unit PO DAILY 10/18/17 [History] Levofloxacin [Levaquin] 750 mg PO Q48H #5 tablet 10/23/17 [Rx] predniSONE [PredniSONE] 40 mg PO DAILY #20 tablet 10/23/17 [Rx] Allergies/Adverse Reactions: 3 Allergy/AdvReac Type Severity Reaction Status Date / Time balsalazide [From Colazal] AdvReac Fever Verified 05/02/17 14:24 Penicillins AdvReac Hives Verified 05/02/17 14:24 Sulfa (Sulfonamide AdvReac Fever Verified 05/02/17 14:24 Antibiotics) Date of admission: 10/19/17 09:42 Primary care physician: Mook Vyas MD Consults: 10/19/17 14:06 Consult to Cardiology [CONS] Routine Comment: Consulting Provider: Card[facility] [place] Reason for Consult: CHFE,New wall motion abnormality, elevated troponin Call Completed: No Discharging clinician: Doron Hubbard Anticipated date of discharge: 10/23/17 - Constitutional Vitals: Temp Pulse Resp BP Pulse Ox 98 F 101 17 103/62 98 10/23/17 11:00 10/23/17 11:00 10/23/17 11:09 10/23/17 11:00 10/23/17 11:09 General appearance: Present: A&O X 3, pleasant, no acute distress, answers questions appropriately - Head Head exam: Present: atraumatic, normocephalic - Eye Eye exam: Present: PERRL, conjuntiva pink, sclera anicteric Pupils: Present: PERRL - Neck Neck exam general surgery: Present: supple, trachea midline. Absent: lymphadenopathy - Respiratory Respiratory exam: Present: rales (R lung inspiratory crackles) - Cardiovascular Cardiovascular exam: Present: RRR, +S1, +S2. Absent: diastolic murmur, gallop, rubs, systolic murmur - GI/Abdominal GI/Abdominal exam: Present: normal bowel sounds, soft, no peritoneal signs. Absent: distended, tenderness - Extremities Exam Extremities exam: Present: warm, radial pulses palpable and symmetrical. Absent : calf tenderness, cyanotic, pedal edema - Neurological Exam Neurological exam: Present: alert, CN II-XII intact, oriented X3, no focal deficits. Absent: pronater drift, facial droop, speech deficit - Skin Skin exam: Present: dry, intact - Patient Status Disposition: Home, Self-Care Condition: Good Functional capacity at discharge: independent ambulation Overall status at discharge: patient is progressing back to baseline - Discharge Instructions Follow Up With: Mook Vyas MD [Primary Care Provider] - Forms: ED Satisfaction Letter - Diet and Activity Activity: resume usual activities as tolerated Diet: low fat, low cholesterol, low salt diet
== END 2017-10-23 15:00 | disposition home or self-care (01) | DRG 177 ==
LOC: 2ANU 07:10 → EMEROO 07:10 → SUATTDRO 08:48 → 2ANU 09:31
PROVIDERS: ADMIT Hospitalist; ATTEND Internal Medicine

== ENCOUNTER 2019-05-29 18:20 | Observation (INO) ==
[2019-05-29] MEDS ORDERED: 0.9 % Sodium Chloride 1,000 ML IVC ONE (18:36)
[2019-05-29 19:40] LABS: Prothrombin Time 11.5 Seconds (9.4-12.1)
[2019-05-29 19:43] LABS: Activated Partial Thrombo Time 30.6 Seconds (26.0-36.0)
[2019-05-29 19:45] LABS: Basophils % 0.1 %; Eosinophils # 0.1 K/mcL (0.0-0.6); Eosinophils % 1.2 %; Hematocrit 33.2 % (35.3-44.9); Hemoglobin 10.6 g/dL (11.5-15.4); Immature Granulocytes % 0.3 % (0-4); Lymphocytes # 0.8 K/mcL (0.6-4.6); Lymphocytes % 10.1 %; Mean Corpuscular HGB Conc 31.9 g/dL (31.6-35.5); Mean Corpuscular Hemoglobin 32.4 pg (28.0-33.3); Mean Corpuscular Volume 101.5 fL (83.0-100.0); Mean Platelet Volume 9.6 fL (9.4-12.4); Monocytes # 0.4 K/mcL (0.0-1.3); Monocytes % 5.8 %; Neutrophils # 6.3 K/mcL (1.6-8.9); Platelet Count 190 K/mcL (140-400); Red Blood Count 3.27 M/mcL (3.82-4.97); Red Cell Distribution Width 13.7 % (11.5-14.5); Segmented Neutrophils % 82.5 %; White Blood Count 7.7 K/mcL (4.3-11.1)
[2019-05-29 19:52] LABS: Alanine Aminotransferase 11 Units/L (7-52); Albumin 3.7 g/dL (3.5-5.7); Albumin/Globulin Ratio 1.4 (1.1-2.2); Alkaline Phosphatase 51 Units/L (34-104); Aspartate Amino Transferase 19 Units/L (13-39); BUN/Creatinine Ratio 15 (6-26); Bilirubin,Direct 0.1 mg/dL (0.0-0.2); Bilirubin,Indirect 0.5 mg/dL (0.0-1.0); Bilirubin,Total 0.6 mg/dL (0.3-1.0); Blood Urea Nitrogen 21 mg/dL (8-23); Calcium 9.1 mg/dL (8.6-10.3); Carbon Dioxide 23 mEq/L (23-29); Chloride 108 mEq/L (98-107); Globulin 2.6 g/dL (2.4-3.5); Glucose 107 mg/dL (70-105); Magnesium 1.6 mg/dL (1.6-2.6); Osmolality,Calculated 291 (280-300); Phosphorous 2.5 mg/dL (2.7-4.5); Potassium 4.1 mEq/L (3.5-5.1); Sodium 139 mEq/L (136-145); Total Protein 6.3 g/dL (6.4-8.9); eGFR For African Americans 43 (> 60); eGFR For Non-African Americans 35 (> 60)
[2019-05-29 19:54] LABS: Troponin I < 0.03 ng/mL (< 0.04)
[2019-05-29] MEDS ORDERED: levoFLOXacin 750 MG/150 ML 750 MG/150 ML BAG IVPB ONE (20:48)
[2019-05-29 22:28] LABS: Bilirubin,Urine Negative (Negative); Blood,Urine Negative (Negative); Clarity,Urine Cloudy (Clear); Color,Urine Yellow (Yellow); Glucose,Urine (UA) Normal (Normal); Ketones,Urine Negative (Negative); Leukocyte Esterase,Urine Moderate (Negative); Nitrite,Urine Negative (Negative); Protein,Urine Trace mg/dL (Neg-Trace); Specific Gravity,Urine 1.022 (1.010-1.025); Urobilinogen,Urine Normal (Normal)
[2019-05-29 22:30] LABS: Bacteria,Urine Few per hpf (None-Few); Hyaline Casts,Urine None Seen per lpf (None-Few); Squamous Epithelial Cell,Urine Many per lpf (None-Few); WBC,Urine 15-30 per hpf (0-3)
[2019-05-29] MEDS ORDERED: Naloxone 0.4 MG/ML INJ IVP PRN (23:01)
[2019-05-29] MEDS ORDERED: Ondansetron 4 MG/2 ML VIAL IVP PRN (23:01)
[2019-05-29] MEDS ORDERED: 0.9 % Sodium Chloride 1,000 ML IVC SCH (23:15)
[2019-05-29] MEDS ORDERED: Diphenoxylate/Atropine 1 TAB TABLET PO PRN (23:43)
[2019-05-30] MEDS ORDERED: Ipratropium/Albuterol Neb 3 ML ONE (00:05)
[2019-05-30] MEDS: Ipratropium/Albuterol Neb 3 ML IH SCH ×2 (00:06→10:18)
[2019-05-30 04:24] LABS: Basophils % 0.2 %; Eosinophils # 0.1 K/mcL (0.0-0.6); Eosinophils % 1.3 %; Hematocrit 33.6 % (35.3-44.9); Hemoglobin 10.8 g/dL (11.5-15.4); Immature Granulocytes % 0.3 % (0-4); Lymphocytes # 0.8 K/mcL (0.6-4.6); Mean Corpuscular HGB Conc 32.1 g/dL (31.6-35.5); Mean Corpuscular Hemoglobin 32.6 pg (28.0-33.3); Mean Corpuscular Volume 101.5 fL (83.0-100.0); Mean Platelet Volume 9.7 fL (9.4-12.4); Monocytes # 0.6 K/mcL (0.0-1.3); Neutrophils # 4.5 K/mcL (1.6-8.9); Platelet Count 175 K/mcL (140-400); Red Blood Count 3.31 M/mcL (3.82-4.97); Red Cell Distribution Width 13.8 % (11.5-14.5); Segmented Neutrophils % 74.2 %
[2019-05-30 04:44] LABS: Calcium 8.8 mg/dL (8.6-10.3); Magnesium 1.4 mg/dL (1.6-2.6); Potassium 3.9 mEq/L (3.5-5.1)
[2019-05-30 07:49] VITALS: BP 121/75
[2019-05-30] MEDS ORDERED: NON-FORMULARY MEDICATION 1 EACH EACH (Fish Oil/Dha/Epa [Fish Oil 1,200 Mg Fish Oil] 1 CAP) PO SCH (09:00)
[2019-05-30] MEDS ORDERED: Fluticasone Propionate Nasal 50 MCG/SPRAY BOTTLE NS SCH (09:00)
[2019-05-30] MEDS ORDERED: Budesonide/Formoterol 160/4.5 1 PUFF INH IH SCH (10:00)
[2019-05-30] MEDS ORDERED: Tiotropium 18 MCG inhalation IH SCH (10:00)
== END 2019-05-30 11:05 | disposition home or self-care (01) ==
LOC: EMEROOARM 18:20 → 3ANU 18:20 → SUATTDRO 21:01 → 3ANU 22:24
PROVIDERS: ADMIT Internal Medicine; ATTEND Internal Medicine